=== PATIENT | male | born 1945 | race Caucasian/White ===

== ENCOUNTER 2020-11-23 14:44 | Outpatient (REF) | payer OTHER, SELFPAY ==
--- NOTE | ~2020-11-23 | XR_ITS ---
EXAMINATION: XR HAND/WRIST, LEFT CLINICAL INFORMATION: Pain, trauma. COMPARISON: None TECHNIQUE: PA, oblique, lateral, and scaphoid views of the left hand/wrist are obtained. FINDINGS: There is joint space narrowing, marginal osteophytes, and prominent subchondral degenerative cysts at the distal radioulnar joint. There is irregularity and atrophy of the lunate suspicious for avascular necrosis. There is marked narrowing of the radiolunate joint. There is widening of the scapholunate interval suspicious for a scapholunate ligament tear. There are moderate osteoarthritic changes at the triscaphe and first CMC joints. There is mild osteoarthritis of the first through third MCP joints and a few of the IP joints of the fingers. There is no acute fracture or malalignment. XR/XR hand wrist LT IMPRESSION: 1. Fqvfpxkn-yx-ffngfy osteoarthritis of the distal radioulnar joint. 2. Atrophy and irregularity of the lunate suspicious for avascular necrosis. Marked narrowing of the radiolunate joint. Scapholunate dissociation. 3. 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 Mild osteoarthritis of multiple MCP and IP joints. 4. No evidence of acute injury.
== END 2020-11-23 14:45 | disposition home or self-care (01) ==
LOC: HO.XRAY 14:44
PROVIDERS: PCP Internal Medicine; Visit Provider Internal Medicine
DX: M79.642 Pain in left hand (principal); V89.2XXD Person injured in unspecified motor-vehicle accident, traffic, subsequent encounter
CPT/HCPCS: 73110; 73130

== ENCOUNTER 2021-12-27 11:59 | Outpatient (REF) | payer MEDICARE, SELFPAY ==
[2021-12-27 13:33] LABS: Hematocrit 48.1 % (42.0-52.0); Hemoglobin 15.9 g/dl (14.0-18.0); Mean Corpuscular HGB Conc 33.1 g/dl (31.0-36.0); Mean Corpuscular Hemoglobin 31.7 pg (27.0-33.0); Mean Corpuscular Volume 95.8 fL (80.0-98.0); Mean Platelet Volume 10.7 fL (9.4-12.4); Platelet Count 195 X10*3/uL (160-400); Red Blood Count 5.02 X10*6/uL (4.60-5.80); Red Cell Distribution Width 13.3 % (11.0-16.0); White Blood Count 5.7 X10*3/uL (4.8-10.8)
[2021-12-27 13:38] LABS: INTERNATIONAL NORM RATIO 1.1 (0.9-1.1); Prothrombin Time 12.5 SEC (10.0-13.1)
[2021-12-27 13:55] LABS: Alanine Aminotransferase 84 U/L (0-40); Albumin Level 4.6 g/dL (3.5-5.0); Alkaline Phosphatase 56 U/L (39-117); Anion Gap 15 (12-20); Aspartate Amino Transferase 72 U/L (5-37); Bilirubin Total 0.5 mg/dL (0.0-1.0); Blood Urea Nitrogen 16 mg/dL (9-16); Calcium 9.7 mg/dL (8.4-10.2); Carbon Dioxide 27 mmol/L (22-29); Chloride 105 mmol/L (96-108); Cholesterol 133 mg/dL; Estimated Glomerular Filt Rate > 60; Glucose Random 99 mg/dL (60-115); HDL Cholesterol 26 mg/dL; LDL Cholesterol Calculated 30 mg/dl; Potassium 5.4 mmol/L (3.3-5.1); Sodium 142 mmol/L (135-145); Total Protein 7.4 g/dL (6.5-8.0); Triglycerides 388 mg/dL
[2021-12-27 14:03] LABS: Estimated Average Glucose 120 mg/dL; Hemoglobin A1c % 5.8 %
[2021-12-28 08:00] LABS: HBc Num1 8.01 S/CO (0.00-0.79); HBsAGNum1 0.24 S/CO (0.00-0.99); Hepatitis B Surface Antigen Negative (Negative); ~HepC Num1 0.05 S/CO (0.00-0.79); ~Hepatitis B Surface Antibody REACTIVE (Nonreactive); ~Hepatitis C Antibody Nonreactive (Nonreactive)
[2021-12-28 10:14] LABS: HBc Num2 8.02 S/CO; HBc Num3 7.88 S/CO; Hepatitis B Core Antibody Reactive (Nonreactive)
[2021-12-29 08:21] LABS: Hepatitis A Antibody IgG REACTIVE (Nonreactive); ~Hepatitis A Antibody IgG 13.32 S/CO (0.00-0.99)
== END 2021-12-27 12:00 | disposition home or self-care (01) ==
LOC: HO.LAB 11:59
PROVIDERS: PCP Internal Medicine; Visit Provider Internal Medicine
DX: K74.60 Unspecified cirrhosis of liver (principal)
CPT/HCPCS: 36415; 80053; 80061; 83036; 85027; 85610; 86704; 86706; 86708; 86803; 87340

== ENCOUNTER 2021-12-29 08:41 | Outpatient (REF) | payer MEDICARE, SELFPAY ==
--- NOTE | ~2021-12-29 | US_ITS ---
EXAMINATION: US ABDOMEN COMPLETE CLINICAL INFORMATION: Portal hypertension. COMPARISON: CT abdomen and pelvis 05/04/2018. X-ray abdomen 11/06/2017. Ultrasound abdomen complete 10/26/2012. TECHNIQUE: Real-time imaging of the abdominal viscera. FINDINGS: PANCREAS: The head and body the pancreas are normal. The tail is not well visualized due to bowel gas. ABDOMINAL AORTA: There is evidence of atherosclerotic disease. There is mild dilatation of the distal abdominal aorta measuring 3.2 x 3.2 cm. This is similar to previous The upper and mid abdominal aorta are normal in caliber. INFERIOR VENA CAVA: Not well visualized. LIVER: The liver is normal in size. The liver contour is normal. Liver echotexture is increased. No focal hepatic lesion. There is no intrahepatic biliary duct dilatation seen. GALLBLADDER: Normal. The gallbladder is physiologically distended without evidence of stones, sludge, polyps, wall thickening or pericholecystic fluid. COMMON BILE DUCT: Normal in caliber measuring 0.22 cm in diameter. RIGHT KIDNEY: There are are 2 cysts measuring 1.2 x 0.8 x 1.3 cm and 1 x 0.7 x 0.9 cm exophytic to the upper to midpole. No hydronephrosis or renal calculi. The kidney measures 10.7 cm in maximum dimension. LEFT KIDNEY: Normal. No hydronephrosis. No renal calculi or focal parenchymal lesions. The kidney measures 11.0 cm in maximum dimension. SPLEEN: Upper normal in size. The spleen measures 13.5 cm in maximum dimension. FREE FLUID: None. US/US abdomen complete IMPRESSION: Echogenic liver probably representing fatty infiltration. Upper normal-size spleen. No ascites. Atherosclerotic disease and mild dilatation of the distal abdominal aorta measuring 3.2 cm. Follow-up abdominal aortic ultrasound every 3 years recommended.. Small right renal cysts. Limited visualization of the tail the pancreas.
== END 2021-12-29 08:42 | disposition home or self-care (01) ==
LOC: HO.US 08:41
PROVIDERS: PCP Internal Medicine; Visit Provider Internal Medicine
DX: K76.6 Portal hypertension (principal)
CPT/HCPCS: 76700

== ENCOUNTER 2022-02-09 10:03 | Outpatient (REF) | payer MEDICARE, SELFPAY ==
--- NOTE | ~2022-02-09 | US_ITS ---
EXAMINATION: US COMPLETE ABDOMEN WITH LIVER ELASTOGRAPHY CLINICAL INFORMATION: Hepatic cirrhosis. COMPARISON: 12/29/[address] scan of 08/03/2016. TECHNIQUE: Real-time imaging of the abdominal viscera. Noninvasive ultrasound liver fibrosis assessment is performed using Latesha ElastPQ point quantification shear wave elastography (2D-SWE) with a C5-2 MHz transducer. Multiple elastography samples are obtained. FINDINGS: PANCREAS: Normal. The visualized pancreatic head and body are normal in appearance. The remainder of the pancreas is obscured from visualization by the overlying bowel gas. ABDOMINAL AORTA: The proximal, middle, and distal aortic segments are normal in caliber. INFERIOR VENA CAVA: Visualized portions are normal. LIVER: There is diffusely increased echogenicity consistent with fatty infiltration or hepatocellular disease of other etiology. No intrahepatic bile duct dilatation is seen. No suspicious solid mass is noted. The right lobe measures 17.8 cm in length. The left lobe measures 14.5 cm in length. Portal flow is hepatopedal. Shear wave liver elastography median stiffness is 1.86 m/s (reference: normal median stiffness is 1.3 m/s or less). IQR/median stiffness to assess sampling precision is 0.04 (reference: good quality data set is IQR/median stiffness of 0.15 or less). GALLBLADDER: Normal. The gallbladder is physiologically distended without evidence of stones, sludge, polyps, wall thickening or pericholecystic fluid. COMMON BILE DUCT: Normal in caliber measuring 0.4 cm in diameter. RIGHT KIDNEY: There is again noted to be a stable complex cyst with septation and no vascular flow within the septation. This is a Bosniak 2 cyst and does not require follow-up. No hydronephrosis. No renal calculi or focal solid parenchymal lesions. The kidney measures 10.0 cm in maximum dimension. LEFT KIDNEY: Normal. No hydronephrosis. No renal calculi or focal parenchymal lesions. The kidney measures 10.9 cm in maximum dimension. SPLEEN: Mildly enlarged. The spleen measures 13.2 cm in maximum dimension. FREE FLUID: None. US/US abdomen comp w elastography IMPRESSION: 1. Diffusely increased echogenicity of the liver consistent with fatty infiltration or hepatocellular disease of other etiology. Mildly enlarged spleen. 2. Liver elastography: Measurements are suggestive of compensated advanced chronic liver disease but need further test for confirmation. REFERENCE: Society of Radiologists in Ultrasound Liver Stiffness Thresholds (2020): LIVER STIFFNESS THRESHOLDS: *Liver Stiffness equal or less than 1.3 m/s: High probability of being normal. *Liver Stiffness less than 1.7 m/s: In the absence of other known clinical signs, rules out compensated advanced chronic liver disease. *Liver Stiffness 1.7-2.1 m/s: Suggestive of compensated advanced chronic liver disease but need further test for confirmation. *Liver Stiffness over 2.1 m/s: Rules in compensated advanced chronic liver disease. *Liver Stiffness over 2.4 m/s: Suggestive of clinically significant portal hypertension. QUALITY OF DATA SET: *IQR/Median value equal or less than 0.15 implies a quality data set. *IQR/Median value over 0.15 implies a poor quality data set. SIGNIFICANT CHANGE FROM PRIOR EXAM: Significant change if liver stiffness measurement is 10% or greater from prior exam. OTHER CONSIDERATIONS: The stage of liver fibrosis may be overestimated in the setting of acute hepatitis, liver inflammation, elevated liver function tests, hepatic vascular congestion, obstructive cholestasis, non-fasting state, and infiltrative diseases such as amyloidosis and lymphoma. In some patients with NAFLD, the liver stiffness thresholds for compensated advanced chronic liver disease may be lower. In causes other than viral hepatitis and NAFLD, liver stiffness thresholds are not well established.
== END 2022-02-09 10:04 | disposition home or self-care (01) ==
LOC: HO.US 10:03
PROVIDERS: Visit Provider Internal Medicine
DX: K74.60 Unspecified cirrhosis of liver (principal)
CPT/HCPCS: 76705; 76981

== ENCOUNTER → 2022-02-15 10:57 | Outpatient (BNVA) | payer MEDICARE, SELFPAY | PROVIDERS: PCP Internal Medicine; Visit Provider Internal Medicine | DX: K74.60 Unspecified cirrhosis of liver (principal); R76.8 Other specified abnormal immunological findings in serum; Z86.010 Personal history of colon polyps; Z80.0 Family history of malignant neoplasm of digestive organs | CPT/HCPCS: 99212 ==

== ENCOUNTER 2022-06-02 11:52 | Outpatient (REF) | payer MEDICARE, SELFPAY ==
--- NOTE | ~2022-06-02 | XR_ITS ---
EXAMINATION: XR CHEST CLINICAL INFORMATION: Acute cough with emphysema COMPARISON: 09/08/2014 TECHNIQUE: 2 views of the chest were obtained. FINDINGS: Heart size normal. There is no evidence of CHF. Changes of emphysema are not is well appreciated on the plain film radiograph as they were on the prior CT scan of the chest. No consolidations or effusions are seen. Some mild peribronchial thickening is seen. XR/XR chest 2V IMPRESSION: No acute intrathoracic disease. Mild peribronchial thickening.
== END 2022-06-02 11:53 | disposition home or self-care (01) ==
LOC: HO.XRAY 11:52
PROVIDERS: PCP Internal Medicine; Visit Provider Family Medicine
DX: R05.1 Acute cough (principal); J43.2 Centrilobular emphysema
CPT/HCPCS: 71046

== ENCOUNTER 2022-06-16 13:52 | Outpatient (REF) | payer MEDICARE, SELFPAY ==
--- NOTE | ~2022-06-16 | XR_ITS ---
EXAMINATION: XR CHEST CLINICAL INFORMATION: Dyspnea, SOB. COMPARISON: None available. TECHNIQUE: 2 views of the chest were obtained. FINDINGS: No significant abnormality is noted involving the heart, lungs, mediastinum, bony thorax or soft tissues. XR/XR chest 2V IMPRESSION: Unremarkable chest examination.
== END 2022-06-16 13:53 | disposition home or self-care (01) ==
LOC: HO.XRAY 13:52
PROVIDERS: Visit Provider Family Medicine
DX: R06.00 Dyspnea, unspecified (principal)
CPT/HCPCS: 71046

== ENCOUNTER 2022-07-06 08:05 | Outpatient (REF) | payer MEDICARE, SELFPAY ==
--- NOTE | ~2022-07-06 | US_ITS ---
EXAMINATION: US ABDOMEN COMPLETE CLINICAL INFORMATION: Unspecified cirrhosis of liver. COMPARISON: Ultrasound abdomen complete 02/09/2022 and 12/29/2021. CT abdomen and pelvis 05/04/2018. X-ray abdomen 11/06/2017. TECHNIQUE: Real-time imaging of the abdominal viscera. FINDINGS: PANCREAS: Normal. ABDOMINAL AORTA: The upper mid abdominal aorta is normal in caliber. There is a small aneurysm of the lower abdominal aorta measuring 3.5 x 3.2 cm in AP and transverse dimension. This measured 3.3 cm on prior exam January 2022. INFERIOR VENA CAVA: Visualized portions are normal. LIVER: Liver echotexture is increased. The liver is slightly enlarged. The liver contour is normal. No focal hepatic lesion. There is no intrahepatic biliary duct dilatation seen. GALLBLADDER: Normal. The gallbladder is physiologically distended without evidence of stones, sludge, polyps, wall thickening or pericholecystic fluid. COMMON BILE DUCT: Normal in caliber measuring 0.2 cm in diameter. RIGHT KIDNEY: There is a bilobed cyst with slightly thickened septation or 2 adjacent cysts exophytic to the upper pole measuring 1.5 x 0.9 x 1.4 cm. This measured 1.3 x 1.1 x 1.3 cm on previous exam and may be minimally increased in size. No hydronephrosis or renal calculi. The kidney measures 10.6 cm in maximum dimension. LEFT KIDNEY: Normal. No hydronephrosis. No renal calculi or focal parenchymal lesions. The kidney measures 11.0 cm in maximum dimension. SPLEEN: Upper normal in size. The spleen measures 12.9 cm in maximum dimension. Stable 1.7 x 1.3 x 1.4 cm splenule. FREE FLUID: None. US/US abdomen complete IMPRESSION: Slightly enlarged echogenic liver. No focal liver lesion. Upper normal-size spleen. Small lower abdominal aortic aneurysm. Annual ultrasound follow-up for 5 years according best practice recommendations recommended. Slight interval increase in size in the complex cyst exophytic to the upper pole of the right kidney. This could be followed at the same time as abdominal aortic aneurysm follow-up.
== END 2022-07-06 08:06 | disposition home or self-care (01) ==
LOC: HO.US 08:05
PROVIDERS: PCP Internal Medicine; Visit Provider Internal Medicine
DX: K74.60 Unspecified cirrhosis of liver (principal)
CPT/HCPCS: 76700

== ENCOUNTER 2024-02-01 12:01 | Outpatient (REF) | payer MEDICARE, SELFPAY ==
[2024-02-01 13:04] LABS: Estimated Average Glucose 212 mg/dL; Hemoglobin A1C 216.3206 umol/L; Total Hemoglobin (HGBA1C) 2902.7197 umol/L
[2024-02-01 13:27] LABS: Anion Gap 15 (12-20); Blood Urea Nitrogen 11 mg/dL (9-16); Calcium 9.8 mg/dL (8.4-10.2); Carbon Dioxide 22 mmol/L (22-29); Chloride 103 mmol/L (96-108); Estimated Glomerular Filt Rate > 60; Glucose Random 284 mg/dL (60-115); Potassium 4.6 mmol/L (3.3-5.1); Sodium 135 mmol/L (135-145)
== END 2024-02-01 12:02 | disposition home or self-care (01) ==
LOC: HO.LAB 12:01
PROVIDERS: PCP Internal Medicine; Visit Provider Internal Medicine
DX: R73.09 Other abnormal glucose (principal)
CPT/HCPCS: 36415; 80048; 83036

== ENCOUNTER → 2024-04-23 10:33 | Outpatient (BNV) | payer MEDICARE, SELFPAY | PROVIDERS: Admitting Provider Student in an Organized Health Care Education/Training Program; Emergency Provider Emergency Medicine Emergency Medical Services; PCP Internal Medicine; Visit Provider Internal Medicine | DX: R42 Dizziness and giddiness (principal) | CPT/HCPCS: 93010 ==

== ENCOUNTER → 2024-04-23 16:45 | Outpatient (BNV) | payer MEDICARE, SELFPAY | PROVIDERS: Admitting Provider Student in an Organized Health Care Education/Training Program; Emergency Provider Emergency Medicine Emergency Medical Services; PCP Internal Medicine; Visit Provider Student in an Organized Health Care Education/Training Program | DX: D64.9 Anemia, unspecified (principal) | CPT/HCPCS: 99232 ==

== ENCOUNTER → 2024-04-23 16:45 | Outpatient (BNV) | payer MEDICARE, SELFPAY | PROVIDERS: Admitting Provider Student in an Organized Health Care Education/Training Program; Emergency Provider Emergency Medicine Emergency Medical Services; PCP Internal Medicine; Visit Provider Internal Medicine Gastroenterology | DX: D64.9 Anemia, unspecified (principal) | CPT/HCPCS: 99223 ==

== ENCOUNTER 2024-05-20 10:06 | Outpatient (REF) | payer MEDICARE, MEDICAID, SELFPAY ==
[2024-05-20 10:38] LABS: MANUAL DIFF FLAG NO
[2024-05-20 10:59] LABS: Basophils Absolute Auto 0.1 X10*3/uL (0.0-0.2); Eosinophils Absolute Auto 0.1 X10*3/uL (0.0-0.4); Eosinophils Percent Auto 1.9 % (0-4); Hematocrit 28.1 % (42.0-52.0); Hemoglobin 7.5 g/dl (14.0-18.0); Imm Gran Abs Auto 0.04 X10*3/uL (0.00-0.03); Imm Gran Pct Auto 0.6 % (0.0-0.4); Lymphocytes Absolute Auto 0.9 X10*3/uL (1.2-4.9); Lymphocytes Percent Auto 13.3 % (20-40); Mean Corpuscular HGB Conc 26.7 g/dl (31.0-36.0); Mean Corpuscular Hemoglobin 17.6 pg (27.0-33.0); Mean Corpuscular Volume 65.8 fL (80.0-98.0); Mean Platelet Volume 9.3 fL (9.4-12.4); Monocytes Absolute Auto 0.9 X10*3/uL (0.1-1.2); Monocytes Percent Auto 13.4 % (2-11); Neutrophils Absolute Auto 4.7 x10*3/uL (2.0-8.3); Neutrophils Percent Auto 69.8 % (45-73); Platelet Count 233 X10*3/uL (160-400); Red Blood Count 4.27 X10*6/uL (4.60-5.80); Red Cell Distribution Width 21.2 % (11.0-16.0); White Blood Count 6.7 X10*3/uL (4.8-10.8)
--- OUTSIDE RECORDS SUMMARY | 2024-05-20 11:19 | XMS_ITS | Clinical Summary ---
Author Organization [facility] Address [address] [place] [address] Care Team Providers Care Steam Drier Tender Name Role Phone Tank Mills MD Primary Care Provider [phone] Allergies No known active allergies Medications Medication Sig Dispensed Refills Start Date End Date Status aspirin EC 81 MG tablet TAKE ONE TABLET BY MOUTH EVERY DAY 0 01/24/2023 Active Cholecalciferol (Vitamin D3) 25 MCG (1000 UT) CAPS Indications: takes 2 tablets once daily 0 Active Coenzyme Q10 100 MG capsule Take 100 mg by mouth. 0 Active famotidine (PEPCID) 40 MG tablet Take 1 tablet (40 mg total) by mouth. 0 10/31/2019 Active metoprolol tartrate (LOPRESSOR) 25 MG tablet Take 1 tablet (25 mg total) by mouth. 0 10/31/2019 Active pregabalin (LYRICA) 200 MG capsule Take 1 capsule (200 mg total) by mouth. 0 03/21/2023 Active rosuvastatin (CRESTOR) tablet 5 mg Take 1 tablet (5 mg total) by mouth. 0 10/31/2019 Active Vitamin E (Vitamin E/D-Alpha Natural) 268 MG (400 UNIT) CAPS Take 400 Units by mouth. 0 Active Active Problems No known active problems Social History Tobacco Use Types Packs/Day Years Used Date Smoking Tobacco: Former Cigarettes Smokeless Tobacco: Never Tobacco Cessation:Counseling Given: Not Answered Alcohol Use Standard Drinks/Week Comments Not Currently 0 (1 standard drink = 0.6 oz pur e alcohol) Sex and Gender Information Value Date Recorded Sex Assigned at Male 04/13/2023 4:38 PM EST Gender Identity Not on file Sexual Orientation Not on file Job Start Date Occupation Industry Not on file Not on file Not on file Last Filed Vital Signs Vital Sign Reading Time Taken Comments Blood Pressure 168/93 04/24/2023 2:52 PM EST Pulse 109 04/24/2023 2:52 PM EST Temperature 36.8 ??C (98.2 ??F) 04/24/2023 2:52 PM ES T Respiratory Rate - - Oxygen Saturation 96% 04/24/2023 2:52 PM EST Inhaled Oxygen Concentration - - Weight 91.6 kg (202 lb) 04/24/2023 2:52 PM EST Height 181.6 cm (5' 11.5 ) 04/24/2023 2:52 PM ES T Body Mass Index 27.78 04/24/2023 2:52 PM EST Plan of Treatment Health Maintenance Due Date Last Done Comments Hepatitis C Screening 1945 Depression Screening 1958 Preventative Health Evaluation 1964 DTap / Tdap / Td (1 - Tdap) 1965 Shingrix-Zoster Vaccine (1 of 2) 1996 Fall Risk Assessment 2011 Pneumococcal Vaccine (2 of 2 - PPSV23 or PCV20) 02/15/2017 02/16/2016 RSV Adult > 60+ Yrs or (1 - 1-dose 75+ series) 2021 COVID-19 Vaccine (3 - season) 2023 05/19/2020, 04/25/2020 Influenza Vaccine (#1) 2023 0, 01/08/2019, 01/22/2018, Additional history exists Hepatitis B Vaccines Aged Out No long er eligible based on patient's age to complete this topic RSV Ped < 20 months Aged Out No longe r eligible based on patient's age to complete this topic Care Teams Steam Drier Tender Relationship Specialty Start Date End Date Tank Mills MD [address] [place] [address] PCP - General Internal Medicine 04/13/23
--- OUTSIDE RECORDS SUMMARY | 2024-05-20 11:19 | XMS_ITS | Clinical Summary ---
Author Organization [facility] Address [address] [place] [address] Care Team Providers Care Military Nurse Name Role Phone Tank Mills MD Primary Care Provider [phone] Immunizations Name Administration Dates Next Due Pfizer SARS-CoV-2 COVID-19, mRNA, LNP-S, preservative free 05/19/2020,04/25/2020 Social History Tobacco Use Types Packs/Day Years Used Date Smoking Tobacco: Former Smokeless Tobacco: Never Alcohol Use Standard Drinks/Week Comments Not Currently 0 (1 standard drink = 0.6 oz pur e alcohol) Sex and Gender Information Value Date Recorded Sex Assigned at Not on file Legal Sex Male 4:44 AM EST Gender Identity Not on file Sexual Orientation Not on file Obstetrics History Last Filed Vital Signs Vital Sign Reading Time Taken Comments Blood Pressure 168/93 04/24/2023 2:52 PM EST Sitting Left arm Pulse 109 04/24/2023 2:52 PM EST Temperature - - Respiratory Rate - - Oxygen Saturation - - Inhaled Oxygen Concentration - - Weight 91.6 kg (202 lb) 04/24/2023 2:52 PM EST Height 181.6 cm (5' 11.5 ) 04/24/2023 2 :52 PM EST Body Mass Index 27.78 04/24/2023 2:52 PM EST Plan of Treatment Health Maintenance Due Date Last Done Comments DTaP,Tdap,and Td Vaccines (1 - Tdap) 1965 Pneumococcal Vaccine: 50+ Years (1 of 1 - PCV) 1996 Zoster Vaccines (1 of 2) 1996 RSV Immunization Patients 60 + Years Old (1 - 1-dose 75+ series) 2021 Cholesterol Screening (Lipid Panel) 02/27/2022 Depression Screening 02/27/2022 Falls Risk Assessment 02/27/2022 Hepatitis C Screening 02/27/2022 Social Influencers of Health Screening 02/27/2022 COVID-19 Vaccine (3 2023-2 5 season) 2023 05/19/2020, 04/25/2020 Influenza Vaccine (#1) 2023 HIB Vaccines Aged Out No longer eligi ble based on patient's age to complete this topic HPV Vaccines Aged Out No longer eligi ble based on patient's age to complete this topic Hepatitis A Vaccines Aged Out No long er eligible based on patient's age to complete this topic Hepatitis B Vaccines Aged Out No long er eligible based on patient's age to complete this topic IPV Vaccines Aged Out No longer eligi ble based on patient's age to complete this topic MMR Vaccines Aged Out No longer eligi ble based on patient's age to complete this topic Meningococcal ACWY Vaccine Aged Out N o longer eligible based on patient's age to complete this topic Meningococcal B Vacine Aged Out No lo nger eligible based on patient's age to complete this topic RSV Immunization Patients Under 20 months Aged Out No longer eligible b ased on patient's age to complete this topic Varicella Vaccines Aged Out No longer eligible based on patient's age to complete this topic Care Teams Military Nurse Relationship Specialty Start Date End Date Tank Mills MD [address] [place] [address], [address] [place] [id number] PCP - General Internal Medicine 04/09/21
[2024-05-20 11:57] LABS: Ferritin 11 ng/mL (20-250)
[2024-05-20 12:22] LABS: Iron 163 mcg/dL (45-160); Percent Iron Saturation 37 % (15-50); Total Iron Binding Capacity 440 mcg/dL (228-428); Unsaturated Iron Binding 277 ug/dL
== END 2024-05-20 10:07 | disposition home or self-care (01) ==
LOC: HO.LAB 10:06
PROVIDERS: PCP Internal Medicine; Visit Provider Internal Medicine
DX: D50.0 Iron deficiency anemia secondary to blood loss (chronic) (principal)
CPT/HCPCS: 36415; 82728; 83540; 85025

== ENCOUNTER 2024-07-16 09:35 | Outpatient (REF) | payer MEDICARE, MEDICAID, SELFPAY ==
--- NOTE | ~2024-07-16 | XR_ITS ---
CLINICAL HISTORY: Z86.010 - Personal history of colon polyps --- Additional Notes or Special Instruct ions: check for incontinence Single view of the abdomen. COMPARISON: None FINDINGS: Normal bowel distention. Pelvic phleboliths present. No pneumoperitoneum identified. Moderate colonic stool burden. Moderate spondylosis. No acute fracture. IMPRESSION: 1. Nonspecific nonobstructive bowel gas pattern. 2. Moderate colonic stool burden. This document has been electronically signed by: Gorge Villa MD on 07/17/2024 13:02:27
--- OUTSIDE RECORDS SUMMARY | 2024-07-16 14:25 | XMS_ITS | Clinical Summary ---
Author Organization [facility] Address [address] [place] [address] Care Team Providers Care Intake Coordinator Name Role Phone Tank Mills MD Primary Care Provider [phone]- [phone] Allergies No known active allergies Medications Medication [...] age to complete this topic Care Teams Intake Coordinator Relationship Specialty Start Date End Date Tank Mills MD [address] [place] [address] PCP - General Internal Medicine 04/13/23
--- OUTSIDE RECORDS SUMMARY | 2024-07-16 14:25 | XMS_ITS | Clinical Summary ---
Author Organization [facility] Address [address] [place] [address] Care Team Providers Care Geriatric Aide Name Role Phone Tank Mills MD Primary Care Provider [phone] Immunizations Name Administration Dates Next Due Pfizer [...] age to complete this topic Care Teams Geriatric Aide Relationship Specialty Start Date End Date Tank Mills MD [address] [place] [address], [address] [place] [address] PCP - General Internal Medicine 04/09/21
== END 2024-07-16 09:36 | disposition home or self-care (01) ==
LOC: HO.XRAY 09:35
PROVIDERS: PCP Internal Medicine; Visit Provider Internal Medicine Gastroenterology
DX: K74.60 Unspecified cirrhosis of liver (principal); Z86.0100 Personal history of colon polyps, unspecified
CPT/HCPCS: 74018

== ENCOUNTER 2024-07-16 09:35 | Outpatient (AMB) | payer MEDICARE, MEDICAID, SELFPAY ==
--- NOTE | 2024-07-16 09:36 | A.OFFVIS_ITS ---
Intake Visit Reasons: Passing stools Intake Note: Cory presents as a telehealth today. CC: States that he is oozing stool and diarrhea in his underwear. He has pasty bowel movements and has to wipe 10 times. Pains on the LLQ. He wants to have a pill cam done to see what is going down. He states that he has not had that done yet. Network Operations Center Engineer Required: No Allergies No Known Allergies Allergy (Verified 07/16/24 09:36) HPI HPI Passing stools: Details: 79-year-old male with hx of?CAD s/p MD in 2018 on aspirin and Plavix, HTN, AAA, peripheral neuropathy, COPD, gon-yajgdxc-qrrpogmyj type 2 diabetes, fatty liver, and GERD who I am calling for f/u RECAP: Patient had noted he was more SOB on exertion, with fatigue, and light headedness over last few weeks. Overnight he had a fall whilst on the toilet and came to the ED. work up revealed microcytic anemia with HGB 7.5 g/l having been 15.9/48.1 on 12/27/2021. he does take aspirin and plavix for cardiac health. He denies abdominal pain, chest pain, melena, hemoptysis, hematemesis, hematochezia. he had bowel motion today and was brown appearing. He may have had a colonoscopy in the distant past, can't recall details. Per chart review he had colo with Dr watson 2016 with few polyps removed and recommended to have q 5 yrs due to fh of crc He received 1 unit of PRBC. 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 Colonoscopy Findings: colon polyps internal hemorrhoids Anemia likely due to erosive gastritis from aspirin and nsaid use PCP had checked labs at [facility] recently and much better per pt report INTERIM: He has issues with paste like stools stool can be in underwear been going on for a while no blood in the stool he has noted LLQ pain, occurs intermittent, spasm like denies nausea or vomiting he has been compliant with omerpazole he has been taking metamucil he has no issues with urine A/P: 1/ Anemia 2/ possible overflow incontinence 3/ compensated, early cirrhosis -no varices PLAN: 1/ capsule endo to complete anemia w/u 2/ KUB< if severe -mod constipation then improve laxative regimen, if minimal stool then refer Dr Bledsoe, for possible neurostim 3/ repeat US liver now for HCC screening 4/ get labs from [facility] f/u 4-8 weeks PFSH Medical History Lower extremity edema Low back pain Restless legs syndrome (RLS) Pulmonary nodules GERD (gastroesophageal reflux disease) Non-alcoholic fatty liver disease Benign positional vertigo BPH (benign prostatic hyperplasia) CAD (coronary artery disease) Myocardial infarction Aortic aneurysm Cirrhosis Personal history of colonic polyps Surgical History History of heart artery stent Hx of prostate biopsy History of esophagogastroduodenoscopy (EGD) Hx of colonoscopy Family History Father Lung cancer Sister Lung cancer Social History Household Members: None Housing: House Do you presently have visiting nurse or other home services: Yes Alcohol intake: never Comment: Refused larms, call [place] within reach Patient Tobacco Use Status: Former Tobacco user Years Smoked: 20years service: No Telehealth Telehealth Telehealth Platform: Telephone Location of provider rendering services: practice address Location of patient: address on file Patient Identification confirmed using: Name, : Yes Telehealth method: voice only Patient verbally consented to treatment: Yes Patient verbally consented to billing insurance company: Yes Patient informed of any privacy concerns related to visit: Yes Minutes spent on Phone/Video with Pt.: 10 Assessment & Plan Assessment & Plan (1) Personal history of colonic polyps: Code(s): Z86.010 - Personal history of colon polyps Category: Medical Plan: as above (2) Cirrhosis: Code(s): K74.60 - Unspecified cirrhosis of liver Category: Medical Plan: as above Orders: Orders XR KUB Today Z86.010 - Personal history of colon polyps US abdomen comp w elastography Today K74.60 - Unspecified cirrhosis of liver Medications: New dicyclomine 10 mg PO BID 30 caps 1RF Coding Level of Care Code Tele Est Pt Level 4 (78773) Diagnoses Personal history of colonic polyps Z86.010 Cirrhosis K74.60
--- OUTSIDE RECORDS SUMMARY | 2024-07-16 10:35 | XMS_ITS | Clinical Summary ---
Author Organization [facility] Address [address] [place] [address] Care Team Providers Care Rhia Name Role Phone Tank Mills MD Primary Care Provider [phone] Immunizations Name Administration Dates Next Due Pfizer [...] cm (5' 11.5 ) 04/24/2023 2:52 PM EST Body Mass Index 27.78 04/24/2023 2:52 PM EST Plan of Treatment Health Maintenance Due Date Last Done Comments Diabetes: Annual Foot Exam 1955 Diabetes: Annual Retina Eye Exam 1955 DTaP,Tdap,and Td Vaccines (1 - Tdap) 1965 Hepatitis A Vaccines (1 of 2 - Risk 2-dose series) 1965 Hepatitis B Vaccines (1 of 3 - Risk 3-dose series) 2006 Pneumococcal Vaccine: 50+ Years (2 of 2 - PPSV23) 04/12/2016 02/16/2016 Zoster Vaccines (1 of 2) 09/01/2016 07/07/2016 COVID-19 Vaccine (3 - Pfizer risk series) 06/16/2020 05/19/2020, 04/25/2020 Depression Screening 02/27/2022 Falls Risk Assessment 02/27/2022 Social Influencers of Health Screening 02/27/2022 Diabetes: Blood Sugar Control Test (HGBA1C) 06/13/2024 Diabetes: Annual Urine Albumin-Creatinine Ratio (uACR) 04/22/2025 04/22/2024 Diabetes: Annual GFR (Glomerular Filtration Rate) 04/22/2025 04/22/2024, 08/15/2023, 07/27/2017 Hypertension/CHF/CAD Annual BMP Blood Test 04/22/2025 04/22/2024, 08/15/2023, 07/27/2017 Cholesterol Screening (Lipid Panel) 04/22/2029 04/22/2024 Hepatitis C Screening Completed 08/20/2020 RSV Immunization Adult Patients Completed 02/24/2023 Influenza Vaccine Completed 12/10/2023, , 12/21/2021, Additional history exists HIB Vaccines Aged Out No longer eligi [...] age to complete this topic Meningococcal B Vaccine Aged Out No l onger eligible based on patient's age to complete this topic RSV Immunization Patients Under 20 months Aged Out No longer eligible based on patient's age to complete this topic Varicella Vaccines Aged Out No longer eligible based on patient's age to complete this topic Care Teams Rhia Relationship Specialty Start Date End Date Tank Mills MD [address] [place] [address], [address] [place] [address] PCP - General Internal Medicine 04/09/21
--- OUTSIDE RECORDS SUMMARY | 2024-07-16 10:35 | XMS_ITS | Clinical Summary ---
Author Organization [facility] Address [address] [place] [address] Care Team Providers Care Hand Suture Winder Name Role Phone Tank Mills MD Primary Care Provider [phone] Allergies No known active allergies Medications Medication [...] age to complete this topic Care Teams Hand Suture Winder Relationship Specialty Start Date End Date Tank Mills MD [address] [place] [address] PCP - General Internal Medicine 04/13/23
== END 2024-07-16 12:14 | disposition home or self-care (01) ==
LOC: HO.HGI 09:35
PROVIDERS: PCP Internal Medicine; Visit Provider Internal Medicine Gastroenterology
DX: Z86.0100 Personal history of colon polyps, unspecified (principal); K74.60 Unspecified cirrhosis of liver
CPT/HCPCS: 98012

== ENCOUNTER → 2024-07-16 12:08 | Outpatient (BNV) | payer MEDICARE, MEDICAID, SELFPAY | PROVIDERS: PCP Internal Medicine; Visit Provider Radiology Diagnostic Radiology | DX: K56.41 Fecal impaction (principal); R14.0 Abdominal distension (gaseous) | CPT/HCPCS: 74018 ==

== ENCOUNTER 2024-09-05 08:39 | Outpatient (REF) | payer MEDICARE, MEDICAID, SELFPAY ==
--- NOTE | ~2024-09-05 | US_ITS ---
EXAMINATION: US ABDOMEN COMPLETE WITH LIVER ELASTOGRAPHY HISTORY: K74.60 - Unspecified cirrhosis of liver TECHNIQUE: Real-time grayscale ultrasound imaging of the abdomen was performed and images were reviewed. COMPARISON: Comparison is made with the prior examination dated 07/06/2022. FINDINGS: Liver: The right lobe of the liver measures 16.9 cm in size. The left lobe of the liver measures 14.7 cm in size. The liver demonstrates increased echotexture, consistent with steatosis. There is focal fatty sparing adjacent to the gallbladder. The liver demonstrates a mildly nodular contour, suggestive of cirrhosis. No focal mass or intrahepatic biliary ductal dilatation is identified. There is normal hepatopedal flow in the portal vein. Ultrasound elastography of the liver was performed with 10 separate measurements of the liver parenchyma with the patient in the supine position. Measurements were obtained approximately 2 cm below Surinder's capsule and perpendicular to the capsule. The median shear wave velocity is 1.91 m/s. The interquartile range/median (IQR/median) is 0.27. Gallbladder and biliary tree: The gallbladder is unremarkable, without evidence of calculi, wall thickening, or pericholecystic fluid. There is no sonographic Szymanski sign. The common bile duct is normal in caliber measuring 4 mm. Kidneys: The right kidney measures 11.0 cm in length and demonstrates a 1.7 x 1.0 x 1.3 cm complex lesion at the upper pole which demonstrates internal echoes and may represent a solid lesion. Previously this appeared more cystic in nature. The left kidney measures 12.0 cm in length and is unremarkable. Pancreas: The pancreatic head, neck, and body are unremarkable. The pancreatic tail is obscured by bowel gas. Spleen: The spleen is enlarged, measuring 15.7 cm in length. There is a 2.0 cm splenule. Abdominal aorta and inferior vena cava: The visualized portions of the abdominal aorta and inferior vena cava are normal in caliber. There is no free fluid in the abdomen. US/US abdomen comp w elastography IMPRESSION: 1. Hepatosplenomegaly and hepatic steatosis. Nodular liver contour, suggestive of cirrhosis. 2. 1.7 x 1.0 x 1.3 cm complex lesion at the upper pole of the right kidney. A solid mass is not excluded, and renal protocol CT is recommended. The median shear wave velocity in the liver is 1.91 m/s, corresponding to a median liver stiffness of 11.0 kPa. The IQR/median value is 0.27. This is indicative of a quality data set. Findings are indicative of a high elastography value suggestive of compensated advanced chronic liver disease. REFERENCE: Society of Radiologists in Ultrasound Liver Stiffness Thresholds (2019): LIVER STIFFNESS THRESHOLDS: *Shear wave velocity less than 1.3 m/s (Liver Stiffness equal or less than 5 kPa): High probability of being normal. *Shear wave velocity less than 1.7 m/s (Liver Stiffness less than 9 kPa): In the absence of other known clinical signs, rules out compensated advanced chronic liver disease. *Shear wave velocity between 1.7-2.1 m/s (Liver Stiffness 9-13 kPa): Suggestive of compensated advanced chronic liver disease but need further test for confirmation. *Shear wave velocity between 2.1-2.4 m/s (Liver Stiffness 13-17 kPa): Rules in compensated advanced chronic liver disease. *Shear wave velocity greater than 2.4 m/s (Liver Stiffness over 17 kPa): Suggestive of clinically significant portal hypertension. QUALITY OF DATA SET: SIGNIFICANT CHANGE FROM PRIOR EXAM: Significant change if liver stiffness measurement is 10% or greater from prior exam. OTHER CONSIDERATIONS: The stage of liver fibrosis may be overestimated in the setting of acute hepatitis, liver inflammation, elevated liver function tests, hepatic vascular congestion, obstructive cholestasis, non-fasting state, and infiltrative diseases such as amyloidosis and lymphoma. In some patients with NAFLD, the liver stiffness thresholds for compensated advanced chronic liver disease may be lower. In causes other than viral hepatitis and NAFLD, liver stiffness thresholds are not well established. Electronically signed by: Ramón Yuusf MD 09/05/2024 09:38 AM EDT
--- OUTSIDE RECORDS SUMMARY | 2024-09-05 08:57 | XMS_ITS | Clinical Summary ---
Author Organization [facility] Address [address] [place] [address] Care Team Providers Care Supply Chain Buyer Name Role Phone Tank Mills MD Primary Care Provider +1- [phone] Allergies No known active allergies Medications Medication [...] - season) 2023 05/19/2020, 04/25/2020 Influenza Vaccine (Season Ended) 2024 12/07/2019, 01/08/2019, 01/22/2018, Additional history exists Hepatitis B Vaccines Aged Out No long er eligible based on patient's age to complete this topic RSV Ped < 20 months Aged Out No longe r eligible based on patient's age to complete this topic Care Teams Supply Chain Buyer Relationship Specialty Start Date End Date Tank Mills MD [address] [place] [address] PCP - General Internal Medicine 04/13/23
== END 2024-09-05 08:40 | disposition home or self-care (01) ==
LOC: HO.US 08:39
PROVIDERS: PCP Internal Medicine; Visit Provider Internal Medicine Gastroenterology
DX: K74.60 Unspecified cirrhosis of liver (principal)
CPT/HCPCS: 76700; 76981

== ENCOUNTER → 2024-09-05 08:41 | Outpatient (BNV) | payer MEDICARE, MEDICAID, SELFPAY | PROVIDERS: PCP Internal Medicine; Visit Provider Radiology Diagnostic Radiology | DX: K76.89 Other specified diseases of liver (principal); K76.0 Fatty (change of) liver, not elsewhere classified; R16.2 Hepatomegaly with splenomegaly, not elsewhere classified | CPT/HCPCS: 76700; 76981 ==

== ENCOUNTER 2024-09-09 12:05 | Outpatient (REF) | payer MEDICARE, MEDICAID, SELFPAY ==
[2024-09-09 12:51] LABS: Blood Urea Nitrogen 13 mg/dL (9-16); Estimated Glomerular Filt Rate > 60
--- OUTSIDE RECORDS SUMMARY | 2024-09-09 13:33 | XMS_ITS | Clinical Summary ---
Author Organization [facility] Address [address] [place] [address] Care Team Providers Care Home Help Aide Name Role Phone Tank Mills MD Primary Care Provider +1- [phone] Allergies No known active allergies Medications Medication [...] age to complete this topic Care Teams Home Help Aide Relationship Specialty Start Date End Date Tank Mills MD [address] [place] [address] PCP - General Internal Medicine 04/13/23
== END 2024-09-09 12:06 | disposition home or self-care (01) ==
LOC: HO.LAB 12:05
PROVIDERS: Absent Provider Internal Medicine Gastroenterology; PCP Internal Medicine; Visit Provider Thoracic Surgery (Cardiothoracic Vascular Surgery)
DX: N28.89 Other specified disorders of kidney and ureter (principal); R15.9 Full incontinence of feces; D64.9 Anemia, unspecified
CPT/HCPCS: 36415; 82565; 84520

== ENCOUNTER 2024-09-10 14:56 | Outpatient (REF) | payer MEDICARE, MEDICAID, SELFPAY ==
--- NOTE | ~2024-09-10 | CT_ITS ---
EXAMINATION: CT ABDOMEN AND PELVIS WITH CONTRAST CLINICAL INFORMATION: Right renal lesion seen on ultrasound, please evaluate. COMPARISON: None available. TECHNIQUE: Multidetector volumetric images were obtained from the superior aspect of the liver through the pubic symphysis following administration 85 mL of Omnipaque 350 intravenous contrast. Sagittal and coronal reformatted images were obtained on the technologist's workstation. Oral contrast: No This CT examination was performed using dose optimization techniques as appropriate, variously including the following: *Automated exposure control *Adjustment of mA and/or kV according to patient size (this includes techniques or standardized protocols for targeted exams where dose is matched to indication/reason for exam; i.e. extremities or head) *Use of iterative reconstruction technique FINDINGS: LUNG BASES: Lung bases demonstrate mild subpleural scarring in the bilateral lower lobes. Minimal bronchiectasis of the small airways. Minimal dependent atelectasis. Heart size is normal. There are coronary calcifications. No pericardial or pleural effusion. Probable small type I hiatus hernia. LIVER, GALLBLADDER, AND BILIARY TREE: Liver is normal in size and demonstrates mild diffuse fatty infiltration. There is no suspicious focal lesion. There is no intrahepatic or extrahepatic biliary dilatation. The gallbladder is unremarkable with no evidence of radiopaque gallstones, gallbladder wall thickening, or obvious pericholecystic inflammatory changes. PANCREAS: Unremarkable. SPLEEN: Mild Splenomegaly, with spleen measuring 16.9 cm in craniocaudal diameter. There is a small splenule in the inferior hilum. ADRENAL GLANDS: Unremarkable. KIDNEYS AND URETERS: RIGHT KIDNEY: Within the upper pole of the right kidney, there is a mildly exophytic mildly complex cyst with a central calcification measuring 2.3 x 0.7 x 1.7 cm. There is is a benign appearing Bosniak 2 lesion. No additional suspicious abnormalities of the right kidney. No hydronephrosis, mass, or calculus. LEFT KIDNEY: Left kidney is normal in appearance. No hydronephrosis, mass, or calculus. The proximal ureters are nondilated. BLADDER: Unremarkable. GASTROINTESTINAL TRACT: No acute findings. Small bowel, colon, rectum, appendix, stomach, and duodenum appear normal. ABDOMINAL WALL: No significant hernia is appreciated. LYMPH NODES: No abnormal lymphadenopathy is present. VASCULAR: Mild ectasia of the abdominal aorta. Infrarenal aorta measures up to 3.8 cm. Moderate to severe atheromatous calcification of the aorta and iliac vessels. PELVIC VISCERA: Unremarkable. OSSEOUS STRUCTURES: There is no suspicious lytic or blastic bone lesion. There are moderate degenerative changes in the spine. CT/CT abdomen pelvis w IV con IMPRESSION: 1. There is a Bosniak 2 type cyst in the right kidney measuring 2.3 x 0.7 x 1.7 cm, correlating with the lesion seen on ultrasound. This is a benign lesion. There is no solid renal lesion present. Kidneys otherwise image normally. 2. Mild diffuse fatty infiltration of the liver. No focal liver lesion. 3. Mild splenomegaly. 4. Ectasia of the infrarenal aorta measuring up to 3.8 cm diameter. 5. Additional ancillary findings as discussed in the body of the report. Electronically signed by: Fabiano Gillette MD 09/10/2024 04:14 PM EDT
[2024-09-10] MEDS: iohexoL 350 MG/ML 100 ML INFUS..BTL IV (15:54)
--- OUTSIDE RECORDS SUMMARY | 2024-09-10 17:22 | XMS_ITS | Clinical Summary ---
Author Organization [facility] Address [address] [place] [address] Care Team Providers Care Livestock Farm Workers Name Role Phone Tank Mills MD Primary Care Provider +1- [phone] Allergies No known active allergies Medications Medication [...] age to complete this topic Care Teams Livestock Farm Workers Relationship Specialty Start Date End Date Tank Mills MD [address] [place] [address] PCP - General Internal Medicine 04/13/23
== END 2024-09-10 14:57 | disposition home or self-care (01) ==
LOC: HO.CT 14:56
PROVIDERS: PCP Internal Medicine; Visit Provider Internal Medicine Gastroenterology
DX: N28.89 Other specified disorders of kidney and ureter (principal)
CPT/HCPCS: 74177; Q9967

== ENCOUNTER → 2024-09-10 14:57 | Outpatient (BNV) | payer MEDICARE, MEDICAID, SELFPAY | PROVIDERS: PCP Internal Medicine; Visit Provider Radiology Diagnostic Radiology | DX: N28.1 Cyst of kidney, acquired (principal) | CPT/HCPCS: 74177 ==

== ENCOUNTER 2024-09-30 10:55 | Outpatient (AMB) | payer MEDICARE, MEDICAID, SELFPAY ==
--- NOTE | 2024-09-30 11:02 | A.OFFVIS_ITS ---
Vital Signs 09/30/24 11:09 Height 5 ft 11.5 in Weight 195 lb BMI 26.8 BP 105/62 Blood Pressure Location Lt brachial Position Sitting Pulse 97 Intake Visit Reasons: F/U CT SCAN Intake Note: Cory presents in the office as a follow up CT scan. CC: states he is here for results - was told that cyst was benign - he is having issues with blisters on his legs and was told he has diabetes. Forensic Science Technician Required: No Allergies No Known Allergies Allergy (Verified 09/30/24 11:10) HPI HPI F/U CT SCAN: Details: 79-year-old male with hx of?CAD s/p GA in 2018 on aspirin and Plavix, HTN, AAA, peripheral neuropathy, COPD, [id number] type 2 diabetes, fatty liver, and GERD who I am calling for f/u RECAP: Patient had noted he was more SOB on exertion, with fatigue, and light headedness over last few weeks. Overnight he had a fall whilst on the toilet and came to the ED. work up revealed microcytic anemia with HGB 7.5 g/l having been 15.9/48.1 on 12/27/2021. he does take aspirin and plavix for cardiac health. He denies abdominal pain, chest pain, melena, hemoptysis, hematemesis, hematochezia. he had bowel motion today and was brown appearing. He may have had a colonoscopy in the distant past, can't recall details. Per chart review he had colo with Dr watson 2016 with few polyps removed and recommended to have q 5 yrs due to fh of crc He received 1 unit of PRBC. 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 VITAL SIGNS:see workflow HEENT: Nonicteric sclerae, PERRLA, EOMI. Oropharynx clear. Moist mucous membranes. Conjunctivae appear well perfused. No thyroid mass. CHEST: Chest wall is nontender. HEART: Regular rate and rhythm without murmurs. LUNGS: Clear to auscultation bilaterally. ABDOMEN: Soft, positive bowel sounds, nontender, no organomegaly.no flank tenderness Rectal exam--weak sphincter tone and expulsion SKIN: No rash, no excessive bruising, petechiae, or purpura. NEUROLOGIC: Cranial nerves II-XII intact without motor/sensory deficit. Psych: normal affect A/P: 1/ Anemia -per his report PCP checked and numbers are better 2/ possible overflow incontinence--weak sphincter on exam 3/ compensated, early cirrhosis -no varices, Ct exam and US without mass, benign kidney cyst PLAN: 1/ capsule endo to complete anemia w/u--still needs to be done 2/ await urology assessment for neuro stim--weak sohincter tone 3/ repeat US liver q 6 month 4/ get labs from [facility] Medical History Lower extremity edema Low back pain Restless legs syndrome (RLS) Pulmonary nodules GERD (gastroesophageal reflux disease) Non-alcoholic fatty liver disease Benign positional vertigo BPH (benign prostatic hyperplasia) CAD (coronary artery disease) Myocardial infarction Aortic aneurysm Cirrhosis Personal history of colonic polyps Surgical History History of heart artery stent Hx of prostate biopsy History of esophagogastroduodenoscopy (EGD) Hx of colonoscopy Family History Father Lung cancer Sister Lung cancer Social History Household Members: None Housing: House Do you presently have visiting nurse or other home services: Yes Alcohol intake: never Comment: Refused larms, call [place] within reach Patient Tobacco Use Status: Former Tobacco user Years Smoked: 19years service: No Physical Exam Vital Signs: Last Vital Signs Pulse 97 09/30/24 11:09 BP 105/62 09/30/24 11:09 BMI result Body Mass Index 26.8 Assessment & Plan Assessment & Plan (1) Incontinence of bowel: Code(s): R15.9 - Full incontinence of feces Category: Medical Plan: as above Coding Level of Care Code Est Pt Level 4 (36733) Diagnoses Incontinence of bowel R15.9
[2024-09-30 11:09] VITALS: BP 105/62; PULSE 97; BMI 26.8
--- OUTSIDE RECORDS SUMMARY | 2024-09-30 11:54 | XMS_ITS | Patient Health Record ---
Author Organization [facility] Jaylin angela AragonCortes Address [address] [place] [address] Care Team Providers Care Voice Instructor Name Role Phone Tank Mills Primary Care Provider Otoniel Winkler Unavailable [phone] Allergies No Known Allergies Results Component Value Reference Range Notes HEMOGLOBIN A1C (GLYCOHEMOGLO BIN) Reviewed date:08/09/2024 01:35:04 PM Interpretation: Performing Lab: Notes/Report: HEMOGLOBIN A1C % (HH) 5.7 Reason For Referral No Information Medications Medication SIG (Take, Route, Frequency, Duration) Notes Start Date End Date Status Aspirin Low Dose 81 MG TAKE ONE TABLET B Y MOUTH EVERY DAY Oral; Duration: 90 Days Active Famotidine 40 MG Oral; Duration: 90 Days Active Iron Active Extra Depth Orthopedic Shoes (1 Pair) with Customized Heat Molded Multidensity Innersoles (3 Pair) as directed Dx: NIDDM/Polyneuropathy (E11.42), Hammertoe Foot Deformity (M20.41,M20.42), Preulcerative Skin Lesion(s) (L85.1 08/09/2024 Active Vitamin C Active Lasix Active Bevespi Aerosphere 9-4.8 MCG/ACT INHALE TWO PUFFS BY MOUTH TWICE A DAY IN THE MORNING & IN THE EVENING Inhalation; Duration: 30 Days Active Rosuvastatin Calcium 10 MG Oral; Duration: 90 Days Active LORazepam 0.5 MG Oral; Duration: 20 Days Active Social History Tobacco Use: Social History Observation Description Date Details (start date - stop date) Never Smoker NA - NA Tobacco use other than smoking: Question Answer Notes Are you an other tobacco user? No Tobacco Control (Standard) Question Answer Notes Tobacco use: Nonsmoker Additional Findings: Tobacco non-user Current no nsmoker AUDIT-C (Standard) Question Answer Notes Did you have a drink containing alcohol in the p ast year? No Points 0 Interpretation Negative Problems Problem Type SNOMED Code ICD Code Onset Dates Problem Status W/U Status Risk Notes Problem Acquired hammer toe of right foot (679912512898 9105) Other hammer toe(s) (acquired), right foot (M20.41) Active confirmed Problem Acquired hammer toe of left foot (662624988089 9103) Other hammer toe(s) (acquired), left foot (M20.42) Active confirmed Problem Type 2 diabetes mellitus with diabetic polyneuropathy (E11.42) Active confirmed Vital Signs Blood pressure diastolic 82 mm Hg 08/09/2024 Height 5ft11.5in in 08/09/2024 Blood pressure systolic 134 mm Hg 08/09/2024 Weight 190 lbs 08/09/2024 BMI 26.13 kg/m2 08/09/2024 Procedures Procedure Date Ordered Date Performed Result Body Sit e 20371-MYORUTK NAIL, 1-5 08/09/2024 N/A 58695-PAXI SKIN LESIONS, OVER 4 08/09/2024 N/A [id number] DYSTROPHIC NAILS ANY # 08/09/2024 N/A Encounters Encounter Location Date Provider Diagnosis [facility] [address] [address] 08/09/2024 Otoniel Zurita Type 2 diabetes mellitus with diabetic polyneuropathy E11.42 ; Tinea unguium B35.1 ; Other hammer toe(s) (acquired), right foot M20.41 and Other hammer toe(s) (acquired), left foot M20.42 Assessments Encounter Date Diagnosis (ICD Code) Assessment Notes Treatment Notes Treatment Clinical Notes Section Notes 08/09/2024 Tinea unguium (ICD-10 - B35.1) 08/09/2024 Type 2 diabetes mellitus with diabetic polyneuropathy (ICD-10 - E11.42) 08/09/2024 Other hammer toe(s) (acquired), right foot (ICD-10 - M20.41) Patient Educated with: DIABETIC FOOT CARE INSTRUCTIONS. pdf (DIABETIC FOOT CARE INSTRUCTIONS. pdf) 08/09/2024 Other hammer toe(s) (acquired), left foot (ICD-10 - M20.42) Plan Of Treatment Pending Test Test Name Order Date [id number] NAIL, 1-5 08/09/2024 [id number] SKIN LESIONS, OVER 4 08/10/19 [id number] DYSTROPHIC NAILS ANY # Next Appt Details Provider Name:Otoniel Zurita , 11/01/2024 11:15:00 AM, [address] [place] [address], [id number], Insurance Providers Payer Name Payer Address Payer Phone Subscriber Number Group Number Insured Name Patient Relationship to Insured Coverage Start Date Coverage End Date [facility] [address] [place] [id number] Cory Vazquez Self - patient is the insured 4 Medical (General) History Medical History History ICD Code Back,Hip,and Knee pain CAD (Cholesterol) Diabetic Heart disease High Blood Pressure Lung disease Surgical History Surgery Date(Month/Year) lung surgery Hospitalization History Reason Date(Month/Year) [facility]- iron issues 07/19
--- OUTSIDE RECORDS SUMMARY | 2024-09-30 11:54 | XMS_ITS | Clinical Summary ---
Author Organization [facility] Address [address] [place] [address] Care Team Providers Care Mobile Crane Operator Name Role Phone Tank Mills MD Primary Care Provider Immunizations Name Administration Dates Next Due Pfizer [...] Diabetes: Blood Sugar Control Test (HGBA1C) 06/13/2024 Influenza Vaccine (#1) 2024 , 12/14/2022, 12/21/2021, Additional history exists Diabetes: Annual Urine Albumin-Creatinine Ratio (uACR) 04/22/2025 04/22/2024 Diabetes: Annual GFR (Glomerular Filtration Rate) 04/22/2025 04/22/2024, 08/15/2023, 07/27/2017 Hypertension/CHF/CAD Annual BMP Blood Test 04/22/2025 04/22/2024, 08/15/2023, 07/27/2017 Cholesterol Screening (Lipid Panel) 04/22/2029 04/22/2024 Hepatitis C Screening Completed 08/20/2020 RSV Immunization Adult Patients Completed 02/24/2023 HIB Vaccines Aged Out No longer eligi [...] age to complete this topic Care Teams Mobile Crane Operator Relationship Specialty Start Date End Date Tank Mills MD [address] [place] [address], [address] [place] [address] PCP - General Internal Medicine 04/09/21
--- OUTSIDE RECORDS SUMMARY | 2024-09-30 11:54 | XMS_ITS | Clinical Summary ---
Author Organization [facility] Address [address] [place] [address] Care Team Providers Care Dynamic Balancer Name Role Phone Tank Mills MD Primary Care Provider +1- [phone] Allergies No known active allergies Medications Medication [...] 109 04/24/2023 2:52 PM EST Temperature 36.8 C (98.2 F) 04/24/2023 2:52 PM EST Respiratory Rate - - Oxygen Saturation 96% [...] - 1-dose 75+ series) 2021 COVID-19 Vaccine ( - season) 2023 05/19/2020, 04/25/2020 Influenza Vaccine (Season Ended) 2024 12/07/2019, 01/08/2019, 01/22/2018, Additional history exists Hepatitis B Vaccines Aged Out No long er eligible based on patient's age to complete this topic RSV Ped < 20 months Aged Out No longe r eligible based on patient's age to complete this topic Care Teams Dynamic Balancer Relationship Specialty Start Date End Date Tank Mills MD [address] [place] [address] PCP - General Internal Medicine 04/13/23
== END 2024-09-30 12:19 | disposition home or self-care (01) ==
LOC: HO.HGI 10:56
PROVIDERS: PCP Internal Medicine; Visit Provider Internal Medicine Gastroenterology
DX: R15.9 Full incontinence of feces (principal)
CPT/HCPCS: 99214

== ENCOUNTER → 2024-09-30 10:55 | Outpatient (BNVA) | payer MEDICARE, MEDICAID, SELFPAY | PROVIDERS: PCP Internal Medicine; Visit Provider Internal Medicine Gastroenterology | DX: R15.9 Full incontinence of feces (principal) | CPT/HCPCS: 99212 ==

== ENCOUNTER 2024-10-22 13:28 | Outpatient (AMB) | payer MEDICARE, MEDICAID, SELFPAY ==
--- OUTSIDE RECORDS SUMMARY | 2024-10-15 04:30 | XMS_ITS ---
Author Organization [facility] Address [address] [place] [address] Care Team Providers Care Vice President Regulatory Name Role Phone [place] Primary Care Provider UnavailOtoniel Villasenor Unavailable [phone] Oliva Cabrera Unavailable [phone] Medications Medication SIG (Take, Route, Frequency, Duration) [...] Duration: 30 Days Active OneTouch Delica Plus [id number] - USE 1 LANCET DAILY DIRECTED; Duration: [...] 10/15/2024 Encounters Encounter Location Date Provider Diagnosis [facility] [place] [address] [place] [address] 10/15/2024 Oliva Cabrera Plan Of Treatment Next Appt Details Provider Name:Otonielvalarie Zurita , 11/01/2024 11:15:00 AM, [address] [place], [address], Progress Notes * Cory STEWART NDOB: [birth year] (79 yo M)Acc No.[id number]:10/15/2024 Progress Notes Patient: Cory RAO N Provider: Jannie Cabrera DPM :1945 A ge:79 Y S ex:Male Date:10/15/2024 Address:[address] [place] [address] [id number] Pcp:[place] Subjective: * Chief Complaints: * [...] enies. C ardiovascular: Pacemaker d enies. 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 W PW d enies. C [...] MG/3ML) 0.083% Nebulization Solution Inhalation , Taking Rezee Delkapturem Plus [id number] - Miscellaneous USE 1 LANCET DAILY DIRECTED [...] Pending * Provider: Jannie Cabrera DPM Date: 10/15/2024 Generated for Briana kendrick/Jose Rafael/Judith on: 10/22/2024 02:19 PM EDT
--- OUTSIDE RECORDS SUMMARY | 2024-10-16 23:59 | XMS_ITS | Continuity of Care Document ---
Author Organization [facility] Address [address] [place], [place] [address]chon lewis, [address] [place] [address]- Care Team Providers Care Collections Assistant Name Role Phone Tank Mills MD Primary Care Physician [id number] Date(s): 10/09/24 - 10/16/24 [facility] [address] [place] [address] Drive [address] [place], [place] [address] Attending Physician: Not on Staff, Attending MD Encounter Type: Office Visit Allergies, Adverse Reactions, Alerts No Known Allergies Medications Albuterol (Eqv-Ventolin HFA) 90 mcg/inh inhalation aerosol 2 puffs, Inhalation, Every 6 hours, # 18 Gm, 11 Refills, Maintenance, 10/03/24 2:19:00 PM EDT, [facility], 25, INHALE 2 PUFFS EVERY 6 HOURS, 181, cm, 08/20/24 10:36:00 EDT, Height, 92.9, kg, 06/12/24 21:16:00 EDT, Dry Weight Start Date: 10/03/24 Status: Ordered Quantity: 18.0 Unit: g Repeat number: 1 [employer], See Instructions, # 1 each, Refills 11, Tot. Refills 11, Maintenance, Diagnosis: COPD, J44.9. Nebulizer, nebulizer supplies. For use with albuterol, 1 unit dose 4 times daily. Length of need: Lifetime, 99, 10/03/23 3:36:00 PM EDT, Supply Start Date: 10/03/23 Status: Ordered Quantity: 1.0 Unit: each Repeat number: 12 aspirin 81 mg oral tablet 1 tab, Daily, 0 Refills, Maintenance, 10/31/19 8:24:00 PM EDT Start Date: 10/31/19 Status: Ordered Repeat number: 1 Bevespi Aerosphere 9 mcg-4.8 mcg/inh inhalation aerosol 2 inhalation, Inhalation, 2 times a day, in the morning and the evening j44.9, # 3 each, 3 Refills,Maintenance, 09/20/24 2:31:00 PM EDT, Aerosol, [facility], Partial fill upon patient request if the prescription is for a schedule II opioid drug., 2 inhalation Inhalation 2 times a day,Instr:in the morning and the evening j44.9, 181, cm, 08/20/24 10:36:00 EDT, Height, 92.9, kg, 06/12/24 21:16:00 EDT, Dry Weight Start Date: 09/20/24 Status: Ordered Quantity: 3.0 Unit: each Repeat number: 4 Coenzyme Q10 By Mouth, 0 Refills, Maintenance, 09/06/23 11:12:00 AM EDT, Partial fill upon patient request if theprescription is for a schedule II opioid drug. Start Date: 09/06/23 Status: Ordered Repeat number: 1 ferrous fumarate 325 mg oral tablet 1 tablet = 325 mg, By Mouth, Daily, # 30 tablet, 0 Refills, Maintenance, 06/14/24 7:52:00 AM EDT, Tablet, [facility], Partial fill upon patient request if the prescription is for a schedule II opioid drug., 181, cm, 06/13/24 22:38:00 EDT, Height, 92.9, kg, 06/12/24 21:16:00 EDT, Dry Weight Start Date: 06/14/24 Stop Date: 07/14/24 Status: Ordered Quantity: 30.0 Unit: tablet Repeat number: 1 fluticasone 50 mcg/inh nasal spray See Instructions, INSTILL 1 SPRAY INTO EACH NOSTRIL TWO TIMES DAILY; SHAKE WELL BEFORE USE, # 16 Gm, 11 Refills, Maintenance, 09/09/24 9:11:00 AM EDT, [facility], 30, INSTILL 1 SPRAYINTO EACH NOSTRIL TWO TIMES DAILY; SHAKE WELL BEFORE USE, 181, cm, 08/20/24 10:36:00 EDT, Height, 92.9, kg, 06/12/24 21:16:00 EDT, Dry Weight Start Date: 09/09/24 Status: Ordered Quantity: 16.0 Unit: g Repeat number: 1 furosemide 20 mg oral tablet 1, capsule, By Mouth, Once, # 1 tablet, Refills 0, Maintenance, 06/12/24 5:28:00 PM EDT, Partial fill upon patient request if the prescription is for a schedule II opioid drug. Start Date: 06/12/24 Status: Ordered Quantity: 1.0 Unit: tablet Repeat number: 1 glipiZIDE 5 mg oral tablet 5 mg, 1, tablet, By Mouth, Daily, # 30 tablet, Refills 0, Maintenance, 06/12/24 5:28:00 PM EDT, Partial fill upon patient request if the prescription is for a schedule II opioid drug. Start Date: 06/12/24 Status: Ordered Quantity: 30.0 Unit: tablet Repeat number: 1 LORazepam 0.5 mg oral tablet 1 tablet = 0.5 mg, By Mouth, Daily at bedtime, PRN as needed for anxiety, 0 Refills, Maintenance, 06/12/24 5:28:00 PM EDT, Tablet, Partial fill upon patient request if the prescription is for a schedule II opioid drug. Start Date: 06/12/24 Status: Ordered Repeat number: 1 metoprolol 25 mg oral tablet 25 mg, 1, tablet, By Mouth, 2 times a day, # 60 tablet, Refills 0, Maintenance, 10/31/19 8:18:00 PM EDT Start Date: 10/31/19 Status: Ordered Quantity: 60.0 Unit: tablet Repeat number: 1 Nebulizer/Compressor See Instructions, # 1 each, Refills 11, Tot. Refills 11, Maintenance, Nebulizer A7003 Neb Disp Set A7014 Neb non-Disp Filter A7005 Neb Non-Disp set A7015 Aerosol Mask A7013 Neb Disp Filter length of need lifetime 99 months for home use, 10/04/23 10:32:00 AM EDT, Supply Start Date: 10/04/23 Status: Ordered Quantity: 1.0 Unit: each Repeat number: 12 Plavix 75 mg oral tablet 75 mg, 1, tablet, By Mouth, Daily, # 30 tablet, Refills 5, Maintenance, 06/12/24 5:28:00 PM EDT, Partial fill upon patient request if the prescription is for a schedule II opioid drug. Start Date: 06/12/24 Status: Ordered Quantity: 30.0 Unit: tablet Repeat number: 1 pregabalin 200 mg oral capsule 1 capsule = 200 mg, By Mouth, 3 times a day, 0 Refills, Maintenance, 03/21/23 12:47:00 PM EST, Capsule, Partial fill upon patient request if the prescription is for a schedule II opioid drug. Start Date: 03/21/23 Status: Ordered Repeat number: 1 rosuvastatin 5 mg oral tablet 1 tablet = 5 mg, By Mouth, Daily at bedtime, 0 Refills, Maintenance, 10/31/19 8:25:00 PM EDT Start Date: 10/31/19 Status: Ordered Repeat number: 1 Vitamin C 500 mg oral tablet 1 tablet = 500 mg, By Mouth, Daily, vitamin C to be taken at the same time with iron tablet, # 30 tablet, 0 Refills, Maintenance, 06/14/24 7:53:00 AM EDT, Tablet, [facility], Partialfill upon patient request if the prescription is for a schedule II opioid drug., 181, cm, 06/13/24 22:38:00 EDT, Height, 92.9, kg, 06/12/24 21:16:00 EDT, Dry Weight Start Date: 06/14/24 Stop Date: 07/14/24 Status: Ordered Quantity: 30.0 Unit: tablet Repeat number: 1 Vitamin D3 1000 intl units oral capsule 1 capsule = 25 mcg, By Mouth, Daily, 0 Refills, Maintenance, 09/06/23 11:13:00 AM EDT, Partial fill upon patient request if the prescription is for a schedule II opioid drug. Start Date: 09/06/23 Status: Ordered Repeat number: 1 vitamin E 100 iu oral capsule 1 capsule = 100 International_Units, By Mouth, Daily, 0 Refills, Maintenance, 09/06/23 11:13:00 AM EDT, Partial fill upon patient request if the prescription is for a schedule II opioid drug. Start Date: 09/06/23 Status: Ordered Repeat number: 1 Problem List Condition Confirmation Course Effective Dates Status Health St atus Informant Symptomatic anemia Confirmed Active Chest pain Confirmed Active Diabetes mellitus Confirmed Active Hyponatremia Confirmed Active Lung cancer Confirmed Active Pitting edema Confirmed Active Social History Social History Type Response Smoking Status 10 or more cigarette s (1/2 pack or more)/day in last 30 days; Other: Patient stopped smoking 2001; entered on: 01/04/23 Sex Sex Representation Male (finding) Note * Amy Valerio: PERFORM Event Display: Patient Education/Instruction Authored Date: [id number] Ambulatory Adult Visit Summary [facility] [address] [place] [address] Drive [address] [place], [place] [id number] Name: MARIA DOLORES STEWART : 1945?? Visit: 10/09/2024 10:55?? Ambulatory Visit Instructions ?? Your Care Team Primary Care Provider Tank Mills MD? This Visit Provider Chen Buckley NP Your Diagnosis Diabetes Vitals Signs Temperature: 97.2 DegF Height: 181 cm Pulse Rate:??94 bpm??High Weight: 87 kg Systolic Blood Pressure: 100 mm Hg Body Mass Index:??26.56 kg/m2??High Diastolic Blood Pressure:??52 mm Hg??Low Body surface area: 2.09 Oxygen Saturation: 95 % ?? What to do next Instructions From Your Provider [facility] [address] [place] [address] ?? Dr. Cathie Roth MD, FCCP, FACS? Dr. Mignon Martinez MD, MPH, FACS? Dr. Pete Garza, DO, FACS? SHELLI Brock, BOOKING SUPERVISOR-BC ?? Office Phone #: [phone]? Office Fax #: [phone] ? You are being sent for the following imaging studies to be done in??6 months??(you will be called to schedule these studies unless otherwise noted): ?? -??CT chest ?? Your most recent CT scan does not show any evidence of recurrent lung cancer.?? There is a new sternal fracture that was likely from when you fell off the toilet into the side of the tube.?? This should heal on it's own and does not appear to be displaced.?? Your spleen continues to be enlarged.?? I will defer further evaluation of the spleen to your primary care doctor.?? I will reach out to hisoffice again regarding this finding and again fax the results.?? I will see you back in six months with a new CT scan of the chest.?? Please call the office sooner with any further questions or concerns.? Follow-Up Appointments Follow Up with??Marcio CHAWLA, Chen Gage When:??04/15/2025 11:30 AM EST Why: CT CHEST TO BE DONE THE WEEK BEFORE APPT Where: [address] [place] [address] [address] [facility] [address]- Future Orders CT Chest W/ Contrast, Routine, Reason for Exam: Other:, lung cancer surveillance, IV Contrast Only,Please schedule in March 2025, Once, *Est. 02/09/25 +/- 21 days Creatinine - Routine, Once, For CT scan, 10/10/23 13:38:00 EDT, Single or Recurring Future Order, [facility], Blood?? BUN - Routine, Once, To be drawn one week prior to his CT scan in September 2024, 04/11/24 12:10:00 EST,Future Order, [facility], Blood?? Creatinine - Routine, Once, To be drawn one week prior to his CT scan in September 2024, 04/11/24 12:10:00 EST, Future Order, [facility], Blood?? BUN - Routine, Once, 09/03/24 14:05:00 EDT, Single or Recurring Future Order, [facility], Blood?? Creatinine - Routine, Once, 09/03/24 14:06:00 EDT, Single or Recurring Future Order, [facility], Blood?? BUN - Routine, Once, To be drawn one week prior to CT in March 2025, 03/17/25 11:43:00 EST, Future Order, [facility], Blood?? Creatinine - Routine, Once, To be drawn one week prior to CT in March 2025, 03/17/25 11:43:00 EST, Future Order, [facility], Blood?? Medications The list below reflects the information in our records and provided by you today along with any changes made during this visit. Please continue your medications until treatment is completed or stopped by your provider. If this is different from the information you have or there are other questions,please contact the prescribing provider. What How Much When Instructions Unchanged Albuterol (Albuterol (Eqv-Ventolin HFA) 90 mcg/ inh inhalation aerosol) 2 puff(s) Inhalation Every 6 hours Unchanged Ascorbic Acid (Vitamin C 500 mg oral tablet) 1 tab(s) Oral Daily Duration: 30 Days vitamin C to be taken at the same time with iron tablet ?? Unchanged Aspirin (aspirin 81 mg oral tablet) 1 tab Daily Unchanged Cholecalciferol (Vitamin D3 1000 intl units oral capsule) 1 capsule Oral Daily Unchanged Clopidogrel (Plavix 75 mg oral tablet) 1 tab(s) Oral Daily Unchanged Durable Medical Equipment ([employer]) See instructions Diagnosis: COPD, J44.9. Nebulizer, nebulizer supplies. For use with albuterol, 1 unit dose 4 times daily. Length of need: Lifetime, 99 ?? Unchanged Durable Medical Equipment (Nebulizer/ Compressor) See instructions Nebulizer A7003 Neb Disp Set ??A7014 Neb non-Disp Filter ??A7005 Neb Non-Disp set A7015 Aerosol Mask A7013 Neb Disp Filter ??length of need lifetime 99 months ??for home use ?? Unchanged Ferrous Fumarate (ferrous fumarate 325 mg oral tablet) 1 tab(s) Oral Daily Duration: 30 Days Unchanged Fluticasone Nasal (fluticasone 50 mcg/ inh nasal spray) See instructions INSTILL 1 SPRAY INTO EACH NOSTRIL TWO TIMES DAILY; SHAKE WELL BEFORE USE ?? Unchanged formoterol-glycopyrrolate (Bevespi Aerosphere 9 mcg-4.8 mcg/ inh inhalation aerosol) 2 inhalation Inhalation Twice a day in the morning and the evening j44.9 ?? Unchanged Furosemide (furosemide 20 mg oral tablet) 1 capsule Oral Once Unchanged GlipiZIDE (glipiZIDE 5 mg oral tablet) 1 tab(s) Oral Daily Unchanged Lorazepam (LORazepam 0.5 mg oral tablet) 1 tab(s) Oral Daily at Bedtime as needed for as needed for anxiety Unchanged Metoprolol (metoprolol 25 mg oral tablet) 1 tab(s) Oral Twice a day Unchanged Pregabalin (pregabalin 200 mg oral capsule) 1 capsule Oral 3 times a day Unchanged Rosuvastatin (rosuvastatin 5 mg oral tablet) 1 tab(s) Oral Daily at Bedtime Unchanged Ubiquinone (Coenzyme Q10) Oral Unchanged Vitamin E (vitamin E 100 iu oral capsule) 1 capsule Oral Daily Test Performed Below is a partial list of the tests performed during your Visit. You may have had other tests and procedures not included in this list. Please discuss all test results with your provider. BUN?-- Results Pending -- Creatinine?-- Results Pending -- Medications and Immunizations Administered Medications Given During Visit No medications given during this visit.?? Allergies (NKA means No Known Allergies) NKA Common Emergency Awareness Tips IS IT A STROKE? Act FAST and Check for these signs: FACE Does the face look uneven? ARM Does one arm drift down? SPEECH Does their speech sound strange? TIME Call at any sign of stroke ?? Heart Attack Signs Chest discomfort: Most heart attacks involve discomfort in the center of the chest and lasts more than a few minutes, or goes away and comes back. It can feel like uncomfortable pressure, squeezing, fullness or pain. Discomfort in upper body: Symptoms can include pain or discomfort in one or both arms, back, neck, jaw or stomach. Shortness of breath: With or without discomfort. Other signs: Breaking out in a cold sweat, nausea, or lightheaded. Remember, MINUTES DO MATTER. If you experience any of these heart attack warning signs, call to get immediate medical attention! ?? Smoking can increase your chances of developing chronic health problems and can cause harmful effects to other family members in your house. If you smoke, you are strongly encouraged to quit. Please call [employer] at [phone] or [phone] ([phone]) or log in to [email or web address] for referrals to smoking cessation programs. ?? The National Suicide Prevention Hotline is available 17/10 if you or someone you know needs to find a reason to keep living. By calling 6-209-391-talk (6476) you'll be connected to a skilled, trained counselor at a crisis center in your area. [facility] [employer] Portal You can view and manage your care through the patient portal or by using a health care osmin of your choosing. [employer] is a website that allows you to securely view your medical information including your hospital discharge summary, office visit summaries, medications and follow-up visits. You can also request appointments, renew medications, and request access to your medical information using a health care osmin of your choosing, or just ask a question. You can enroll at [email or web address] or register during your next office visit. [facility], in keeping with [facility] guidance, no longer requires face masks for staff, patientsor visitors in most situations. Similiar to time spent indoors at other locations, there is the chance that you were exposed to repiratory viruses during your time with us (such as flu or COVID-19). If you develop symptoms concerning for a viral respiratory infection, please seek testing (and treatment if indicated) from your medical provider or home test kit. ?? Disclaimer: The information provided is of a general nature and is intended to be used in conjunction with the recommendations and advice of your health care practitioner. Every effort has been made to ensure that the information provided is accurate and complete at the time it is provided to you however, as your needs change, or, as new information becomes available, different or additional instructions may be required. ?? If you have questions, please consult with your primary care provider or pharmacist, as appropriate. This information is not intended to serve as substitution for assessment and evaluation by a qualified health care provider. If you do not have a primary care provider, you may find a [facility] provider by calling [facility] [employer] [facility] at [phone]. Patient Care team information Care Team Personnel Name: Ramo Pineda RN Position: [facility] RN Member Role: Primary Care Nurse Name: Tank Mills MD Position: Reference Physician Member Role: PCP Address: [address] [place] [address] Tank Mills [place], [place] [address] Telecom: Name: Lianna Martinez RN Position: [facility] RN Member Role: Primary Care Nurse Name: Machelle Quinones RN Position: [facility] RN Member Role: Primary Care Nurse Name: Lula Castorena RN Position: S RN Member Role: Primary Care Nurse Name: Kurtis Horvath RN Position: S RN Member Role: Primary Care Nurse Name: Alice Dietz RN Position: S RN Member Role: Primary Care Nurse Name: Jennifer Plummer RN Position: S RN Member Role: Primary Care Nurse Care Team Related Persons Name: JEFFERY ALVA Name: JANEL CARREON Insurance Providers Guarantor name: MARIA DOLORES [employer] Plan Information #: 1 Payer: [employer] P[employer] Payer Identifier: NA Member Number: [id number] Group Number: [id number] Subscriber Identifier: [id number] Relationship to Subscriber: self Coverage Type: Medicare PPO Coverage Verification Date: Telecom: NA Address: Critical access hospital Information #: 2 [facility] [employer] Payer Identifier: NA Member Number: [id number] Group Number: Subscriber Identifier: [id number] Relationship to Subscriber: self Coverage Type: MEDICAID Coverage Verification Date: Telecom: Address:
--- NOTE | 2024-10-22 13:35 | MHC.OFFVIS ---
Intake Visit Reasons: interstim discussion Intake Note: New Patient is present for interstim discussion Urology Rx:Tamsulosin Blood Thinners:asprin Imaging completed: 09/10/2024 (CT) Academic Success Coordinator Required: No Accompanied by: Self / Same As Patient Allergies No Known Allergies Allergy (Verified 10/22/24 13:36) HPI Comments Details: Cory is a pleasant male. He is a patient of . He is seen for the following conditions - rectal incontinence Longstanding more than 12 month Has been evaluated with gastroenterology Findings of bowel incontinence in setting of type 2 diabetes Recommendation for trial of neuromodulation placement Discussed neuromodulation Placement test leads We will need to be off anticoagulation for 5 days prior Prescription for Valium provided [facility] Medical History Lower extremity edema Low back pain Restless legs syndrome (RLS) Pulmonary nodules GERD (gastroesophageal reflux disease) Non-alcoholic fatty liver disease Benign positional vertigo BPH (benign prostatic hyperplasia) CAD (coronary artery disease) Myocardial infarction Aortic aneurysm Cirrhosis Personal history of colonic polyps Surgical History History of heart artery stent Hx of prostate biopsy History of esophagogastroduodenoscopy (EGD) Hx of colonoscopy Family History Father Lung cancer Sister Lung cancer Social History Household Members: None Housing: House Do you presently have visiting nurse or other home services: Yes Alcohol intake: never Comment: Refused larms, call [place] within reach Patient Tobacco Use Status: Former Tobacco user Years Smoked: 19years service: No Review of Systems Const Denies chills and Denies fever(s) Card Reports no additional complaints and Denies syncope Resp Denies cough GI Denies abdominal pain and Denies heartburn Reports as per HPI and Denies change in libido Neuro Denies syncope Psych Denies change in libido Endo Denies change in libido Physical Exam Const General: cooperative, healthy appearing, comfortable and no acute distress Orientation/consciousness: patient oriented x3 HEENT Face and sinus: Yes normal facial exam Mouth: moist mucous membranes Neck Neck: Yes normal visual inspection, Yes full ROM and Yes trachea midline Chest Chest palpation & inspection: normal inspection of the chest Resp Effort & Inspection: normal respiratory effort, able to speak in complete sentences and no respiratory distress GI Inspection: Yes normal to inspection Back/Spine/Pelvis Cervical Spine: normal cervical lordosis Thoracic/Lumbar Spine: thoracic and lumbar spine normal to inspection Skin General skin exam: no rashes or lesions noted Neuro General: patient oriented x3, gait normal, tone normal and moves all extremities Extrem General: Yes normal to inspection and Yes capillary refill normal Assessment & Plan Assessment & Plan (1) Incontinence of bowel: Code(s): R15.9 - Full incontinence of feces Category: Medical Plan Risks, benefits and alternatives to therapy were discussed. These include but are not limited to infection, bleeding, damage to local organs and tissues, need for further interventions. Anesthetic risks regarding cardiac arrhythmia, blood clots, and potential mortality were discussed. The patient understands the typical recovery time and the outpatient nature of the procedure. After consideration of these risks the patient gives full informed consent and they wish to move ahead with the procedure. - neuromodulation step 1 Medications: New diazepam Take medication after arrival at office 2 mg PO BID PRN 2 tabs 0RF anxiety 1 day R15.9 - Full incontinence of feces, R45.89 - Other symptoms and signs involving emotional state Patient Instructions: This note is constructed using voice recognition software. While every effort has been made to ensure accuracy progress worker errors may have been included. Imaging studies, laboratory and physical exam results were discussed and reviewed in detail. No major barriers to patient understanding were identified. An opportunity to ask questions regarding the treatment plan was provided. All questions were answered. The patient expressed understanding and agreement with the above treatment plan. The patient is aware they should contact our office by phone for worsening of their current condition or the appearance of new urologic symptoms. Compliance is encouraged with any medications and followup testing that is ordered. It is a privilege to participate in the urologic care of your patient. If you have any questions or concerns regarding treatment for the above conditions, or other urologic issues, please do not hesitate to contact me. The office telephone contact is [phone]. Sincerely, Dr Garrett Bledsoe MD, [facility] - Urology Compassionate Specialist Care for the Genitourinary System Coding Level of Care Code New Pt Level 4 (36569) Diagnoses Incontinence of bowel R15.9
--- OUTSIDE RECORDS SUMMARY | 2024-10-22 14:20 | XMS_ITS | Encounter Summary ---
Author Organization [facility] Address [address] [facility] [address] [place] [address] Phone Care Team Providers Care Digital Media Sales Consultant Name Role Phone Tank Mills MD Primary Care Provider [phone] Encounter Details Date Type Department Care Team (Late st Contact Info) Description 01/14/2017 Ancillary Orders [facility] [address] [place] [address] Paul Coburn MD [address] [place] [address], [address] [address] [email or web address] Social History Tobacco Use Types Packs/Day Years Used Date Smoking Tobacco: Never Assessed Sex and Gender Information Value Date Recorded Sex Assigned at Not on file Legal Sex Male 4:34 PM EST Gender Identity Not on file Sexual Orientation Not on file documented as of this encounter Plan of Treatment Upcoming Encounters Date Type Department Care Team (Late st Contact Info) Description 11/08/2024 11:40 AM EDT Office Visit [facility] [address] 3rd Floor, [address] [place] [address] Paul Coburn MD [address] [place] [address], [address] [phone] 01/07/2025 11:00 AM EDT Nutrition [facility] [address] [place] [address] [place] [address] Delfina Askew MD [address] [place] [address], [address] [place] [address] Ev Ny LDN [address] [facility], [address] [place] [address] documented as of this encounter Visit Diagnoses Not on filedocumented in this encounter Additional Health Concerns Infection Onset Date Last Indicated Resolved Time CoV-Risk 04/23/2020 04/23/2020 05/03/2020 1:24 AM EST CoV-Risk 04/25/2022 04/25/2022 05/06/2022 1:22 AM EST CoV-Risk 06/02/2022 06/02/2022 06/13/2022 1:22 AM EDT CoV-Risk 06/17/2022 06/17/2022 06/28/2022 1:22 AM EDT CoV-Risk 02/09/2024 02/09/2024 02/20/2024 1:22 AM EST documented as of this encounter Care Teams Digital Media Sales Consultant Relationship Specialty Start Date End Date Tank Mills MD [address] [facility], [address] [place] [address] [email or web address] PCP - General 01/10/17 documented as of this encounter Additional Source Comments The information contained in this document represents components of the legal health record. It is not the complete legal health record.[facility]
--- OUTSIDE RECORDS SUMMARY | 2024-10-22 14:20 | XMS_ITS | Clinical Summary ---
Author Organization [facility] Address [address] [place] [address] Care Team Providers Care Director Of Materials Management Name Role Phone Tank Mills MD Primary Care Provider [phone] Immunizations Name Administration Dates Next Due Pfizer [...] - Pfizer risk series) 06/16/2020 05/19/2020, 04/25/2020 Falls Risk Assessment 02/27/2022 Social Influencers of Health Screening 02/27/2022 Depression Screening 03/27/2024 Diabetes: Blood Sugar Control Test (HGBA1C) 06/13/2024 [...] age to complete this topic Care Teams Director Of Materials Management Relationship Specialty Start Date End Date Tank Mills MD [address] [place] [address], [address] [place] [address] PCP - General Internal Medicine 04/09/21
--- OUTSIDE RECORDS SUMMARY | 2024-10-22 14:20 | XMS_ITS | Clinical Summary ---
Author Organization [facility] Address [address] [place] [address] Care Team Providers Care Health Sanitarian Name Role Phone Tank Mills MD Primary Care Provider [phone] Allergies No known active allergies Medications Medication [...] season) 2023 05/19/2020, 04/25/2020 Influenza Vaccine (#1) 2024 0, 01/08/2019, 01/22/2018, Additional history exists Hepatitis B Vaccines Aged Out No long er eligible based on patient's age to complete this topic RSV Ped < 20 months Aged Out No longe r eligible based on patient's age to complete this topic Care Teams Health Sanitarian Relationship Specialty Start Date End Date Tank Mills MD [address] [place] [address] PCP - General Internal Medicine 04/13/23
== END 2024-10-22 14:38 | disposition home or self-care (01) ==
LOC: HO.HUSH 13:28
PROVIDERS: PCP Internal Medicine; Visit Provider Urology
DX: R15.9 Full incontinence of feces (principal); Z13.9 Encounter for screening, unspecified
CPT/HCPCS: 99204

== ENCOUNTER → 2024-10-22 13:28 | Outpatient (BNVA) | payer MEDICARE, MEDICAID, SELFPAY | PROVIDERS: PCP Internal Medicine; Visit Provider Urology | DX: Z01.818 Encounter for other preprocedural examination (principal); R15.9 Full incontinence of feces | CPT/HCPCS: 81003; 99202 ==

== ENCOUNTER 2025-01-16 12:52 | Outpatient (REF) | payer MEDICARE, OTHER, SELFPAY ==
--- NOTE | 2025-01-16 15:38 | MHC.SHP ---
Pre-Procedural Eval Section A - 24 Hr Update-Section A only Date of Service: 01/16/25 The patient is an INPATIENT: No Changes since office visit: No Cold of Flu in the past 2 weeks, No New Medical Problems, No Changes in Medication and No Patient answered all questions The patient has been examined within 24 hours of the surgical procedure. The History & Physical has been completed within 30 days and I have reviewed it.: No Section B - Complete if H&P > 30 days Chief Complaint: Neuromodulation Bowel test Details of Present Illness: Stage 1 trial Relevant Family History (Specify if Yes): No Relevant Social History: None Present Medications: see Short Stay Collaborative assessment Medical History: No relevant PMH History of Previous Operations: No relevant previous surgery Allergies: Allergies Allergy/AdvReac Type Severity Reaction Status Date / Time No Known Allergies Allergy Verified 10/22/24 13:36 Review of Systems Sugical H&P ROS: Negative: Constitution, Cardiovascular, Respiratory, Neurological, Psychiatric, Hem-Onc, Allergic/Immunologic, Gastrointestinal, Genitourinary, Musculoskeletal, Integumentary, Endocrine and Eyes/Ears/Nose/Throat Exam Surgical H&P Exam: Normal: HEENT, Normal: Heart, Normal: Lungs, Normal: Extremities, Normal: Abdomen, Normal: Skin and Normal: Neurological Plan Diagnosis/Plan: Unchanged I have reviewed the history and physical and performed a pertinent physical examination on my patient. No changes have occurred unless specified. Time Spent With Patient Time: Total time managing care of this patient today ____ minutes.
--- NOTE | 2025-01-16 15:38 | W.PM.OPN ---
Operative Note Operative Note Date of Service: 01/16/25 Narrative: PreOperative Diagnosis: 1) Overactive bladder with urinary urgency and frequency with incontinence 2) Rectal Incontinence Post Operative Diagnosis: 1) Overactive bladder with urinary urgency and frequency with incontinence (N39.41, R35.0) 2) Rectal Incontinence (R15.9) Procedure: 1.) Percutaneous implantation of neurostimulator electrode array including image guidance - performed bilateral - left and right S3 foramen Surgeon: Dr Garrett Bledsoe Anesthesia: sedation Indications for procedure: - Failed multiple (more than 2) anticholinergic medications in attempt to manage urinary urgency and frequency - Assessment with gastroenterology for rectal incontinence Procedure: After informed consent was verified the patient was brought to the interventional radiology suite. The patient was placed in a prone position and prepped and draped in a sterile fashion. Safety pause time-out was performed. Using the C-arm and Finder needle the S3 foramen exiting from the pelvic arch was marked horizontally from left to right as our horizontal marker. The left and right medial aspect of foramen were highlighted and aligned with the finder needle in a vertical fashion. Lines were marked. The intersection of these lines marked the entry point on the skin of the medial aspect of the left and right S3 foramen. Due to her body habitus normal positioning melo on the skin were in quite different position compared to typical. Local anesthetic was infiltrated along the vertical aspect on both sides. The finder needle was inserted initially into the left targeted foramen. Imaging was performed in AP and lateral fashion. The needle was shown to into the S4 foramen. The quality tester was attached and assessed for placement with Yolande response. A second needle was placed on the left side at S4 level with similar response. The needle was repositioned and entry into the right S3 foramen was confirmed. Response seen at 2.0A levels A 2nd needle was placed for entry into the left S3 foramen. The quality tester was attached and assessed for placement with Yolande response and toe movement. Good responses were confirmed at low amperage (under 2.0A) bilateral. Starting with the right side. The internal introducer from the needle was removed and the quality tester placed. The needle was carefully removed and imaging used to confirm good placement of quality tester. This procedure was repeated on the left side. The two test leads were then attached to the test generator and appropriate dressing was applied in order to maintain integrity for the duration of the outpatient test sequence. CPT 25570, plus 64600-72 for second lead placement. Inclusive of image guidance, 46868 - simple programming
== END 2025-01-16 12:53 | disposition home or self-care (01) ==
LOC: HO.RADIR 12:52
PROVIDERS: Visit Provider Urology
DX: N39.41 Urge incontinence (principal); R35.0 Frequency of micturition; R15.9 Full incontinence of feces
CPT/HCPCS: 64561; C1778; C1897; J2003

== ENCOUNTER → 2025-01-16 12:52 | Outpatient (BNV) | payer MEDICARE, SELFPAY | PROVIDERS: Visit Provider Urology | DX: N39.41 Urge incontinence (principal); R35.0 Frequency of micturition; R15.9 Full incontinence of feces | CPT/HCPCS: 64561 ==

== ENCOUNTER 2025-01-23 10:05 | Outpatient (AMB) | payer MEDICARE, MEDICAID, SELFPAY ==
--- OUTSIDE RECORDS SUMMARY | 2024-10-15 04:30 | XMS_ITS ---
Author Organization [facility] Address [address] [place] [address] Care Team Providers Care Director Technical Name Role Phone [place] Primary Care Provider UnavailOtoniel Villasenor Unavailable [phone] Oliva Cabrera Unavailable [phone] Medications Medication SIG (Take, Route, Frequency, Duration) Notes Start Date End Date Status Azithromycin 250 MG TAKE 2 TABLETS ON FI RST DAY , THEN 1 TABLET DAILY FOR 4 DAYS Oral; Duration: 5 Days Active metFORMIN HCl ER 500 MG TAKE ONE TABLET BY MOUTH EVERY DAY WITH DINNER Oral; Duration: 30 Days Active Brilinta 90 MG TAKE 1 TABLET BY CONG TH TWO TIMES A DAY Oral; Duration: 30 Days Active Aspirin Low Dose 81 MG TAKE ONE TABLET B Y MOUTH EVERY DAY Oral; Duration: 90 Days Active Fluticasone Propionate 50 MCG/ACT INSTILL 1 SPRAY INTO EACH NOSTRIL TWO TIMES DAILY; SHAKE WELL BEFORE USE Nasal; Duration: 30 Days Active Famotidine 40 MG TAKE ONE TABLET BY M OUTH DAILY AT BEDTIME Oral; Duration: 90 Days Active HYDROcodone-Acetaminophen 5-325 MG Oral; Duration: 2 Days Activ e LORazepam 0.5 MG Oral; Duration: 20 Days Active Fluticasone-Salmeterol 113-14 MCG/ACT Inhalation; Duration: 30 Days Active Omeprazole 40 MG TAKE ONE CAPSULE BY MOUTH EVERY DAY Oral; Duration: 90 Days Active Rosuvastatin Calcium 10 MG Oral; Duration: 90 Days Active predniSONE 20 MG Oral; Duration: 5 Days Active Famotidine 20 MG Oral; Duration: 10 Days Active glipiZIDE ER 5 MG Oral; Duration: 90 Days Active Furosemide 20 MG Oral; Duration: 60 Days Active Pregabalin 200 MG TAKE ONE CAPSULE BY MOUTH THREE TIMES A DAY Oral; Duration: 90 Days Active Albuterol Sulfate HFA 108 (90 Base) MCG/ACT Inhalation; Duration: 25 Days Active Mirtazapine 7.5 MG Oral; Duration: 30 Days Active OneTouch Delica Plus [id number] - USE 1 LANCET DAILY DIRECTED; Duration: 90 Days Active Albuterol Sulfate (2.5 MG/3ML) 0.083% Inhalation; Duration: 30 Days Active Clopidogrel Bisulfate 75 MG Oral; Duration: 87 Days Active Ferrous Gluconate 324 (38 Fe) MG TAKE 1 TABLET BY MOUTH THREE TIMES A WEEK ON MONDAY, MONDAY, AND MONDAY Oral; Duration: 70 Days Active Metoprolol Tartrate 25 MG Oral; Duration: 90 Days Active Vitamin C 500 MG TAKE ONE TABLET BY M OUTH EVERY DAY Oral; Duration: 90 Days Active Ferretts 325 (106 Fe) MG TAKE ONE TABLET BY MOUTH EVERY DAY Oral; Duration: 30 Days Active Melatonin [address] ONE TABLET UND ER THE TONGUE NIGHTLY AT BEDTIME Sublingual; Duration: 90 Days Active Dicyclomine HCl 10 MG Oral; Duration: 15 Days Active Bevespi Aerosphere 9-4.8 MCG/ACT Inhalation; Duration: 30 Days Active Social History Tobacco Use: Social [...] ast year? No Points 0 Interpretation Negative Vital Signs Height 5 ft in 10/15/2024 Weight 195 lbs 10/15/2024 BMI 38.08 kg/m2 10/15/2024 Encounters Encounter Location Date Provider Diagnosis [facility] [place] [address] [place] [address] 10/15/2024 Oliva Cabrera Plan Of Treatment Next Appt Details Provider Name:Otonielvalarie Zurita , 05/06/2025 03:15:00 PM, [address] [place], [address], Progress Notes * Cory STEWART NDOB: [birth year] (79 yo M)Acc No.[id number]:10/15/2024 Progress Notes Patient: Cory RAO N Provider: Jannie Cabrera DPM :1945 A ge:79 Y S ex:Male Date:10/15/2024 Address:[address] [place] [address] [id number] Pcp:[place] Subjective: * Chief Complaints: * * ROS: G eneral/Constitutional: Nausea d enies. V omiting d enies. H dayo Thirst d enies. L oss appetite d enies. C hills d enies. F atigue d enies.?Fever d enies. N ight Sweats d enies. U nexplained weight loss d enies. U nexplained weight gain d enies. H EENTM: Dentures d enies. D izziness d enies. G lasses/contacts d enies. R etinopathy d enies. B lurred/double vision d enies. T MJ?denies. D ischarge/drainage d enies. I mplants d enies. S ore throat d enies. D ental implants d enies. H ariella of hearing d enies. D ifficulty chewing/swallowing/speaking d enies. N ose bleeds d enies. S ore mouth d enies. ? R espiratory: On Oxygen d enies. P neumonia/pleurisy d enies.?Bronchitis d enies. E mphysema d enies. C oughing d enies. C ough blood?denies. S hortness of breath d enies. W heezing d enies. C ardiovascular: Pacemaker d enies. 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 W PW d enies. C HF d enies. H eart attack d enies. S eptal defect d enies. R apid beat d enies. C hest pain d enies. A trial Fib. d enies. M urmur/Palpitations d enies. G astrointestinal: Hemorrhoids d enies. S tomach/Abdominal pain d enies. D ark blood stool d enies. I rritable bowel d enies. C onstipation d enies. D iarrhea d enies. H ematology: Swelling d enies. C lots d enies. V aricose Veins d enies. B ruising d enies. B leeding problem d enies. G enitourinary: Blood urine d enies. F requent/Painfu/urination/bladder control d enies. K idney stones d enies. I nfection (UTI) d enies. N ephropathy d enies. s ex trans dis (STD) d enies. P rostate d enies. M usculoskeletal: Hammertoes d enies. B unions d enies. B ack Pain d enies. M uscle Cramps/ Resting d enies. M uscle cramps / walking d enies.?Generalized aches and pains d enies. W eakness d enies. I nteg.: Ramirez d enies. S cars d enies. C orns/calluses?denies. I ngrown nails d enies. P ainful nails d enies. O pen Sores d enies. R ashes d enies. N eurologic: Difficulty sleeping d enies. B rain disorder d enies. N umbness d enies. B alance trouble d enies. C onfusion d enies. F ainting/blackouts d enies. T ingling d enies. T remors d enies. * Medical History: B ack,Hip,and Knee pain, CAD (Cholesterol), Diabetic, Heart disease, High Blood Pressure, Lung disease. * Family History: M other: , diagnosed with Diabetic - NIDDM. F ather: . * Social History: T obacco Use: T obacco use other than smoking A re you an other tobacco user? N o Tobacco Control (Standard) T obacco use: N onsmoker A dditional Findings: Tobacco non-user C urrent nonsmoker D rugs/Alcohol: D rugs H ave you used drugs other than those for medical reasons in the past 12 months? N o M iscellaneous: C affeine: yes, frequency:. Marital status: Single. D rug/Alcohol: A ROMÁN-C (Standard) D id you have a drink containing alcohol in the past year? N o P oints 0 I nterpretation N egative * Medications: T aking Bevespi Aerosphere 9-4.8 MCG/ACT Aerosol Inhalation , Taking Dicyclomine HCl 10 MG Capsule Oral , Taking Melatonin [address] ONE TABLET UNDER THE TONGUE NIGHTLY AT BEDTIME Sublingual , Taking Vitamin C 500 MG Tablet TAKE ONE TABLET BY MOUTH EVERY DAY Oral , Taking Metoprolol Tartrate 25 MG Tablet Oral , Taking Ferrous Gluconate 324 (38 Fe) MG Tablet TAKE 1 TABLET BY MOUTH THREE TIMES A WEEK ON MONDAY, MONDAY, AND MONDAY Oral , Taking Clopidogrel Bisulfate 75 MG Tablet Oral , Taking Ferretts 325 (106 Fe) MG Tablet TAKE ONE TABLET BY MOUTH EVERY DAY Oral , Taking Albuterol Sulfate (2.5 MG/3ML) 0.083% Nebulization Solution Inhalation , Taking Scopix Del8villages Plus [id number] - Miscellaneous USE 1 LANCET DAILY DIRECTED , Taking Mirtazapine 7.5 MG Tablet Oral , Taking Albuterol Sulfate HFA 108 (90 Base) MCG/ACT Aerosol Solution Inhalation , Taking Pregabalin 200 MG Capsule TAKE ONE CAPSULE BY MOUTH THREE TIMES A DAY Oral , Taking Furosemide 20 MG Tablet Oral , Taking glipiZIDE ER 5 MG Tablet Extended Release 24 Hour Oral , Taking Famotidine 20 MG Tablet Oral , Taking predniSONE 20 MG Tablet Oral , Taking Rosuvastatin Calcium 10 MG Tablet Oral , Taking Omeprazole 40 MG Capsule Delayed Release TAKE ONE CAPSULE BY MOUTH EVERY DAY Oral , Taking Fluticasone-Salmeterol 113-14 MCG/ACT Aerosol Powder Breath Activated Inhalation , Taking LORazepam 0.5 MG Tablet Oral , Taking HYDROcodone-Acetaminophen 5-325 MG Tablet Oral , Taking Famotidine 40 MG Tablet TAKE ONE TABLET BY MOUTH DAILY AT BEDTIME Oral , Taking Fluticasone Propionate 50 MCG/ACT Suspension INSTILL 1 SPRAY INTO EACH NOSTRIL TWO TIMES DAILY; SHAKE WELL BEFORE USE Nasal , Taking Aspirin Low Dose 81 MG Tablet Delayed Release TAKE ONE TABLET BY MOUTH EVERY DAY Oral , Taking Brilinta 90 MG Tablet TAKE 1 TABLET BY MOUTH TWO TIMES A DAY Oral , Taking metFORMIN HCl ER 500 MG Tablet Extended Release 24 Hour TAKE ONE TABLET BY MOUTH EVERY DAY WITH DINNER Oral , Taking Azithromycin 250 MG Tablet TAKE 2 TABLETS ON FIRST DAY , THEN 1 TABLET DAILY FOR 4 DAYS Oral Objective: * Vitals: H t:5 ft, Wt:195, BMI: 38.08, Shoe size:10.5, Ht-cm: 152.4 cm, Wt-k.45 kg. Assessment: Plan: * Treatment: * Images: * The named appointment provid er may or may not be the originator of this progress note, and it is not deemed complete until electronically signed by the appointment provider. Sign off status: Pending * Provider: Jannie Cabrera DPM Date: 0 10/15/2024 Generated for Briana kendrick/Jose Rafael/Judith on: 1 12:06 PM EDT
--- OUTSIDE RECORDS SUMMARY | 2024-11-01 07:15 | XMS_ITS ---
Author Organization [facility] Address [address] [place] [address] Care Team Providers Care Safety Patrol Officer Name Role Phone Tank Mills Primary Care Provider Unavailabl Otoniel Haley Unavailable [phone] Encounters Encounter Location Date Provider Diagnosis [address] [address] 11/01/2024 Otoniel Zurita Plan Of Treatment Next Appt Details Provider Name:Otoniel Zurita , 05/06/2025 03:15:00 PM, [address] [place], [address], Progress Notes * Cory STEWART NDOB: [birth year] (79 yo M)Acc No.[id number]:11/01/2024 Progress Note Patient: Shaheed GARCIA Cory Augustine Provider: Darrian Zurita DPM :1945 A ge:79 Y S ex:Male Date:11/01/2024 Address:[address] [place], [place] [id number] Pcp:Tank Mills Subjective: * Chief Complaints: * * Medical History: Objective: * Vitals: Assessment: Plan: * Treatment: * Images: * The named appointment provid er may or may not be the originator of this progress note, and it is not deemed complete until electronically signed by the appointment provider. Sign off status: Pending * Provider: Darrian Zurita DPM Date: 0 11/01/2024 Generated for Briana kendrick/Jose Rafael/eTransmitting on: 1 12:05 PM EDT
--- OUTSIDE RECORDS SUMMARY | 2025-01-17 06:15 | XMS_ITS ---
Author Organization [facility] Address [address] [place] [address] Care Team Providers Care Body Designer Name Role Phone Tank Mills Primary Care Provider Unavailabl Otoniel Haley Unavailable [phone] REASON FOR VISIT Seen Sooner Encounters Encounter Location Date Provider Diagnosis [address] [address] 01/17/2025 Otoniel Zurita Plan Of Treatment Next Appt Details Provider Name:Otoniel Zurita , 05/06/2025 03:15:00 PM, [address] [place], [address], Progress Notes * Cory STEWART NDOB: [birth year] (79 yo M)Acc No.[id number]:01/17/2025 Progress Note Patient: Shaheed Cory GARCIA Provider: Darrian Zurita DPM :1945 A ge:79 Y S ex:Male Date:01/17/2025 Address:[address] [place] [address] [id number] Pcp:Tank Mills Subjective: * Chief Complaints: * 1 . Seen Sooner. * Medical History: Objective: * Vitals: Assessment: Plan: * Treatment: * Images: * The named appointment provid er may or may not be the originator of this progress note, and it is not deemed complete until electronically signed by the appointment provider. Sign off status: Pending * Provider: Darrian Zurita DPM Date: Generated for Briana kendrick/Jose Rafael/Landryitting on: 12:07 PM EDT
--- NOTE | 2025-01-23 10:10 | A.OFFVIS_ITS ---
Intake Visit Reasons: Neuromodulation lead removal Intake Note: Patient is present for PostOp Neuromodulation Lead Remval Urology Rx:Tamsulosin VIT-C Blood Thinners:asprin Imaging completed: 09/10/2024 (CT) Robot Programmer Required: No Accompanied by: Self / Same As Patient Allergies No Known Allergies Allergy (Verified 01/23/25 10:11) HPI Comments Details: Cory is a pleasant male. He is a patient of . He is seen for the following conditions - rectal incontinence Underwent phase 1 neuromodulation Noticed benefit for 1st 72 hours Since then unsure about beneficial nature He will call if wants to proceed [facility] Medical History Lower extremity edema Low back pain Restless legs syndrome (RLS) Pulmonary nodules GERD (gastroesophageal reflux disease) Non-alcoholic fatty liver disease Benign positional vertigo BPH (benign prostatic hyperplasia) CAD (coronary artery disease) Myocardial infarction Aortic aneurysm Cirrhosis Personal history of colonic polyps Surgical History History of heart artery stent Hx of prostate biopsy History of esophagogastroduodenoscopy (EGD) Hx of colonoscopy Family History Father Lung cancer Sister Lung cancer Social History Household Members: None Housing: House Do you presently have visiting nurse or other home services: Yes Alcohol intake: never Comment: Refused larms, call [facility] within reach Patient Tobacco Use Status: Former Tobacco user Years Smoked: 19years service: No Review of Systems Const Denies chills and Denies fever(s) Card Reports no additional complaints and Denies syncope Resp Denies cough GI Denies abdominal pain and Denies heartburn Reports as per HPI and Denies change in libido Neuro Denies syncope Psych Denies change in libido Endo Denies change in libido Physical Exam Const General: cooperative, healthy appearing, comfortable and no acute distress Orientation/consciousness: patient oriented x3 HEENT Face and sinus: Yes normal facial exam Mouth: moist mucous membranes Neck Neck: Yes normal visual inspection, Yes full ROM and Yes trachea midline Chest Chest palpation & inspection: normal inspection of the chest Resp Effort & Inspection: normal respiratory effort, able to speak in complete sentences and no respiratory distress GI Inspection: Yes normal to inspection Back/Spine/Pelvis Cervical Spine: normal cervical lordosis Thoracic/Lumbar Spine: thoracic and lumbar spine normal to inspection Skin General skin exam: no rashes or lesions noted Neuro General: patient oriented x3, gait normal, tone normal and moves all extremities Extrem General: Yes normal to inspection and Yes capillary refill normal Assessment & Plan Assessment & Plan (1) Incontinence of bowel: Code(s): R15.9 - Full incontinence of feces Category: Medical Plan Follow-up 12 month renal imaging Patient Instructions: This note is constructed using voice recognition software. While every effort has been made to ensure accuracy dehydrogenation supervisor errors may have been included. Imaging studies, laboratory and physical exam results were discussed and reviewed in detail. No major barriers to patient understanding were identified. An opportunity to ask questions regarding the treatment plan was provided. All questions were answered. The patient expressed understanding and agreement with the above treatment plan. The patient is aware they should contact our office by phone for worsening of their current condition or the appearance of new urologic symptoms. Compliance is encouraged with any medications and followup testing that is ordered. It is a privilege to participate in the urologic care of your patient. If you have any questions or concerns regarding treatment for the above conditions, or other urologic issues, please do not hesitate to contact me. The office telephon e contact is [phone]. Sincerely, Dr Garrett Bledsoe MD, [facility] - Urology Compassionate Specialist Care for the Genitourinary System Coding Level of Care Code Est Pt Level 3 (44032) Diagnoses Incontinence of bowel R15.9
--- OUTSIDE RECORDS SUMMARY | 2025-01-23 12:05 | XMS_ITS | Encounter Summary ---
Author Organization [facility] Address [address] [facility] [address] [place] [address] Phone Care Team Providers Care Energy And Conservation Technician Name Role Phone Tank Mills MD Primary Care Provider [phone] Encounter Details Date Type Department Care Team (Late st Contact Info) Description 01/14/2017 Ancillary [facility] [address] [place] [address] Paul Coburn MD [address] [place] [address], [address] [address] Social History Tobacco Use Types Packs/Day Years Used Date Smoking Tobacco: Never Assessed Sex and Gender Information Value Date Recorded Sex Assigned at Not on file Legal Sex Male 4:34 PM EST Gender Identity Not on file Sexual Orientation Not on file documented as of this encounter Plan of Treatment Upcoming Encounters Date Type Department Care Team (Late st Contact Info) Description 01/27/2025 2:15 PM EST Office Visit [facility] [address] [place] [address] [place] [address] Tank Mills MD [address] [place] [address], [address] [place] [address] 05/13/2025 11:00 AM EST Appointment [facility] [address] 3rd [place] [address] Paul Coburn MD [address] [place] [address], [address] [place] [address] [email or web address] 05/19/2025 11:00 AM EST Nutrition [facility] [address] [place] [address] Ev Ny LDN 22 [facility], 1st [place] [address] [email or web address] 05/26/2025 11:00 AM EST Office Visit [facility] [address] [facility] 3rd Floor, [address] [place] [address] Paul Coburn MD [address] [facility], [address] [place] [address] [email or web address] documented as of this encounter Visit Diagnoses [...] documented as of this encounter Care Teams Energy And Conservation Technician Relationship Specialty Start Date End Date Tank Mills MD [address] [facility], [address] [place] [address] PCP - General 01/10/17 documented as of this encounter Additional Source Comments The information contained in this document represents components of the legal health record. It is not the complete legal health record.[facility]
--- OUTSIDE RECORDS SUMMARY | 2025-01-23 12:05 | XMS_ITS | Clinical Summary ---
Author Organization [facility] Address [address] [place] [address] Care Team Providers Care Emissions Engineer Name Role Phone Tank Mills MD Primary Care Provider [phone] Allergies No known active allergies Medications Medication [...] series) 2021 COVID-19 Vaccine (3 - season) 2024 05/19/2020, 04/25/2020 Influenza Vaccine (#1) 2024 0, 01/08/2019, 01/22/2018, Additional history exists Hepatitis B Vaccines Aged Out No long er eligible based on patient's age to complete this topic RSV Ped < 20 months Aged Out No longe r eligible based on patient's age to complete this topic Care Teams Emissions Engineer Relationship Specialty Start Date End Date Tank Mills MD [address] [place] [address] PCP - General Internal Medicine 04/13/23
--- OUTSIDE RECORDS SUMMARY | 2025-01-23 12:05 | XMS_ITS | Encounter Summary ---
Author Organization [facility] Address [address] [facility] [address] [place] [address] Phone Care Team Providers Care Psychiatric Nurse Practitioner Name Role Phone Tank Mills MD Primary Care Provider [phone] Reason for Referral * Physical Therapy (Routine) - Closed Specialty Diagnoses / Procedures Referred By Woody t Referred To Contact Physical Therapy Diagnoses Encounter for rehabilitation Tank Mills MD Phone: tel: fax: [email or web address] [address] [place] [address] Phone: tel: Referral ID Status Reason Start Date Expiration Date Visits Re quested Visits Authorized [id number] Closed 02/08/2017 02/08/2018 1 1 Encounter Details Date Type Department Care Team (Latest Contact Info) Description 02/08/2017 Transcribe Orders [facility] [address] [place] [address] Tank Mills MD 22 [facility], [address] [place] [address] Encounter for rehabilitation (Primary Dx) Social History Tobacco Use Types Packs/Day Years [...] Description 01/27/2025 2:15 PM EST Office Visit [facility] [address] [place] [address] [place] [address] Tank Mills MD [address] [place] [address], [address] [place] [address] 05/13/2025 11:00 AM EST Appointment [facility] [address] 3rd [place] [address] Paul Coburn MD [address] [place] [address], [address] [place] [address] [email or web address] 05/19/2025 11:00 AM EST Nutrition [facility] [address] [place] [address] [place] [address] Ev Ny LDN [address] [place] [address], 1st [place] [address] [email or web address] 05/26/2025 11:00 AM EST Office Visit [facility] [address] [place] [address] 3rd Floor, [address] [place] [address] Paul Coburn MD [address] [place] [address], [address] [address] [email or web address] Scheduled Referrals Name Type Priority Associated Diagnoses Orde r Schedule Ambulatory referral to [facility] Physical Therapy Outpatient Referral Routine Encounter for rehabilitation Ordered: 02/08/2017 documented as of this encounter Visit Diagnoses Diagnosis Encounter for rehabilitation- Primary documented in this encounter Additional Health Concerns Infection Onset Date Last Indicated Resolved Time CoV-Risk 04/23/2020 04/23/2020 05/03/2020 1:24 AM EST CoV-Risk 04/25/2022 04/25/2022 05/06/2022 1:22 AM EST CoV-Risk 06/02/2022 06/02/2022 06/13/2022 1:22 AM EDT CoV-Risk 06/17/2022 06/17/2022 06/28/2022 1:22 AM EDT CoV-Risk 02/09/2024 02/09/2024 02/20/2024 1:22 AM EST documented as of this encounter Care Teams Psychiatric Nurse Practitioner Relationship Specialty Start Date End Date Tank Mills MD [address] [place] [address], [address] [place] [address] [email or web address] PCP - General 01/10/17 documented as of this encounter Additional Source Comments The information contained in this document represents components of the legal health record. It is not the complete legal health record.[facility]
--- OUTSIDE RECORDS SUMMARY | 2025-01-23 12:06 | XMS_ITS | Encounter Summary ---
Author Organization [facility] Address [address] [facility] [address] [place] [address] Phone Care Team Providers Care Aircraft Electrical Systems Specialist Name Role Phone Tank Mills MD Primary Care Provider [phone] Encounter Details Date Type Department Care Team (Late st Contact Info) Description 08/17/2020 Procedure Pass Echo Lab [address] [place] [address] Social History Tobacco Use Types Packs/Day Years Used Date Smoking Tobacco: Former Cigarettes 1.5 40 1 04/30/1960 - 02/27/2001 Smokeless Tobacco: Never Alcohol Use Standard Drinks/Week Comments No 0 (1 standard drink = 0.6 oz pur e alcohol) Sex and Gender Information Value Date Recorded Sex Assigned at Not on file Legal Sex Male 4:34 PM EST Gender Identity Not on file Sexual Orientation Not on file 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 file Not on file Not on file documented as of this encounter Plan of Treatment Upcoming Encounters Date Type Department Care Team (Late st Contact Info) Description 01/27/2025 2:15 PM EST Office Visit [facility] [address] [place] [address] [place] [address] Tank Mills MD [address] [place] [address], [address] [place] [address] 05/13/2025 11:00 AM EST Appointment [facility] [address] 3rd [place] [address] Paul Coburn MD [address] [place] [address], [address] [place] [address] 05/19/2025 11:00 AM EST Nutrition [facility] [address] [place] [address] Ev Ny LDN [address] [facility], 1st [place] [address] 05/26/2025 11:00 AM EST Office Visit [facility] [address] Floor, [address] [place] [address] Paul Coburn MD [address] [place] [address], [address] [address] documented as of this encounter Visit Diagnoses Not on filedocumented in this encounter Additional Health Concerns Infection Onset Date Last Indicated Resolved Time CoV-Risk 04/25/2022 04/25/2022 05/06/2022 1:22 AM EST CoV-Risk 06/02/2022 06/02/2022 06/13/2022 1:22 AM EDT CoV-Risk 06/17/2022 06/17/2022 06/28/2022 1:22 AM EDT CoV-Risk 02/09/2024 02/09/2024 02/20/2024 1:22 AM EST Assessment Noted Time PHQ-2 Depression Total Score: 0 03/26/20 1:42 PM EST documented as of this encounter Care Teams Aircraft Electrical Systems Specialist Relationship Specialty Start Date End Date Tank Mills MD [address] [place] [address], [address] [place] [address] PCP - General 01/10/17 documented as of this encounter Additional Source Comments The information contained in this document represents components of the legal health record. It is not the complete legal health record.[facility]
--- OUTSIDE RECORDS SUMMARY | 2025-01-23 12:06 | XMS_ITS | Encounter Summary ---
Author Organization [facility] Address [address] [facility] [address] [place] [address] Phone Care Team Providers Care Apparel Designer Name Role Phone Tank Mills MD Primary Care Provider [phone] Encounter Details Date Type Department Care Team (Late st Contact Info) Description 01/14/2017 Ancillary Orders Non-Invasive Cardiology [address] [place] [address] [place] [address] Paul Coburn MD [address] [place] [address], [address] [address] [email or web address] Diagnosis unknown Social History Tobacco Use Types Packs/Day Years [...] 01/27/2025 2:15 PM EST Office Visit [facility] [address] [place] [address] [place] [address] Tank Mills MD [address] [place] [address], [address] [place] [address] 05/13/2025 11:00 AM EST Appointment [facility] [address] 3rd [place] [address] Paul Coburn MD [address] [place] [address], [address] [place] [address] 05/19/2025 11:00 AM EST Nutrition [facility] [address] [place] [address] Ev Ny LDN [address] [facility], 1st [place] [address] 05/26/2025 11:00 AM EST Office Visit [facility] [address] [facility] 3rd Floor, [address] [place] [address] Paul Coburn MD [address] [facility], [address] [place] [address] documented as of this encounter Visit Diagnoses Diagnosis Diagnosis unknown documented in this encounter Additional Health Concerns Infection Onset Date Last Indicated Resolved Time CoV-Risk 04/23/2020 04/23/2020 05/03/2020 1:24 AM EST CoV-Risk 04/25/2022 04/25/2022 05/06/2022 1:22 AM EST CoV-Risk 06/02/2022 06/02/2022 06/13/2022 1:22 AM EDT CoV-Risk 06/17/2022 06/17/2022 06/28/2022 1:22 AM EDT CoV-Risk 02/09/2024 02/09/2024 02/20/2024 1:22 AM EST documented as of this encounter Care Teams Apparel Designer Relationship Specialty Start Date End Date Tank Mills MD [address] [facility], [address] [place] [address] PCP - General 01/10/17 documented as of this encounter Additional Source Comments The information contained in this document represents components of the legal health record. It is not the complete legal health record.[facility]
--- OUTSIDE RECORDS SUMMARY | 2025-01-23 12:06 | XMS_ITS | Encounter Summary ---
Author Organization [facility] Address [address] [facility] [address] [place] [address] Phone Care Team Providers Care Donor Center Technician Name Role Phone Tank Mills MD Primary Care Provider [phone] Encounter Details Date Type Department Care Team (Late st Contact Info) Description 09/20/2023 Procedure Pass Echo Lab [address] [place] [address] Social History Tobacco Use Types Packs/Day Years Used Date Smoking Tobacco: Former Cigarettes 1.5 40 1 04/30/1960 - 02/27/2001 Smokeless Tobacco: Never Alcohol Use Standard Drinks/Week Comments No 0 (1 standard drink = 0.6 oz pur e alcohol) Education Answer Date Recorded Are you interested in more education? Not on leo e 07/22/2022 Are you concerned about learning? Not on file 07/22/2022 No 07/22/2022 No 07/22/2022 Digital Access Answer Date Recorded No 08/16/2022 No 08/16/2022 Reliable internet access at home? Not on file 08/16/2022 Device with a working camera? Not on file Sex and Gender Information Value Date Recorded Sex Assigned at Not on file Legal Sex Male 4:34 PM EST Gender Identity Not on file Sexual Orientation Not on file Occupation Industry Job Start Date Job End Date [employer] Not on file Not on file Not on file documented as of this encounter Plan of Treatment Upcoming Encounters Date Type Department Care Team (Late st Contact Info) Description 01/27/2025 2:15 PM EST Office Visit [facility] [address] [place] [address] Tank Mills MD [address] [place] [address], [address] [place] [address] 05/13/2025 11:00 AM EST Appointment [facility] [address]rd [place] [address] Paul Coburn MD [address] [place] [address], [address] [place] [address] [email or web address] 05/19/2025 11:00 AM EST Nutrition [facility] [address] [place] [address] Ev Ny LDN [address] [place] [address], 1st [place] [address] 05/26/2025 11:00 AM EST Office Visit [facility] [address] [place] [address] 3rd Floor, [address] [place] [address] Paul Coburn MD [address] [place] [address], [address] [address] documented as of this encounter Visit Diagnoses Not on filedocumented in this encounter Additional Health Concerns Infection Onset Date Last Indicated Resolved Time CoV-Risk 02/09/2024 02/09/2024 02/20/2024 1:22 AM EST Assessment Noted Time PHQ-2 Depression Total Score: 0 03/26/20 20 1:42 PM EST documented as of this encounter Care Teams Donor Center Technician Relationship Specialty Start Date End Date Tank Mills MD [address] [place] [address], [address] [place] [address] PCP - General 01/10/17 documented as of this encounter Additional Source Comments The information contained in this document represents components of the legal health record. It is not the complete legal health record.[facility]
--- OUTSIDE RECORDS SUMMARY | 2025-01-23 12:06 | XMS_ITS | Clinical Summary ---
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 Weight 86.2 kg (190 lb) 11/29/2024 10:20 AM EDT Height 180.3 cm (5' 10.98 ) 11/29/2024 10:20 AM EDT Body Mass Index 26.51 11/29/2024 10:20 AM EDT Plan of Treatment Upcoming Encounters Date Type Department Care Team (Late st Contact Info) Description 01/27/2025 2:15 PM EST Office Visit [facility] Medicine [address] [place] [address] [place] [address] Tank Mills MD [address] [place] [address], [address] [place] [address] 05/13/2025 11:00 AM EST Appointment [facility] [address] [place] [address] Paul Coburn MD [address] [place] [address], [address] [place] [address] 05/19/2025 11:00 AM EST Nutrition [facility] [address] [place] [address] [place] [address] Ev Ny LDN [address] [place] [address], 1st [place] [address] 05/26/2025 11:00 AM EST Office Visit [facility] [address] [place] [address] [address] [facility], [address] [place] [address] Paul Coburn MD [address] [place] [address], [address] [place], [place] [id number] [email or web address] Health Maintenance Due Date Last Done Comments DIABETIC EYE EXAM 02/09/2024 INFLUENZA VACCINE (#1) 2024 , 12/10/2023, 12/14/2022, Additional history exists COVID-19 VACCINE (2024- season) 2024 12/10/2023, 02/15/2022, 12/21/2021, Additional history exists HEMOGLOBIN A1C 03/08/2025 09/06/2024, 03/28, 08/17/2020, Additional history exists LIPID PANEL 04/22/2025 04/22/2024, 07/26, 06/16/2023, Additional history exists URINE MICROALBUMIN/CREATININE RATIO 04/22/2025 04/22/2024 BLOOD PRESSURE 05/29/2025 11/29/2024 DEPRESSION SCREENING 11/29/2025 11/29/2024 PNEUMOCOCCAL VACCINES (50+ years) (2 of 2 - PPSV23) 04/23/2035 02/16/2016 Postponed from 04/12/2016 (Patient Declines / Guardian Declines) ZOSTER VACCINES (1 of 2) 04/23/2035 07/07/2016 Pos tponed from 09/01/2016 (Patient Declines / Guardian Declines) Adult Td,Tdap Booster 04/21/2036 Postpo ming from 1945 (Patient Declines / Guardian Declines) HEPATITIS C SCREENING Completed 08/20/2020, 019 RSV VACCINE Completed 02/24/2023 SMOKING STATUS SCREENING (Once After 26 Yrs) Completed 11/29/2024 HEPATITIS A VACCINES Aged Out No long er eligible based on patient's age to complete this topic HIB VACCINES Aged Out No longer eligi ble based on patient's age to complete this topic MENINGOCOCCAL VACCINES (ACWY) Aged Out No longer eligible based on patient's age to complete this topic MENINGOCOCCAL VACCINES (B) Aged Out N o longer eligible based on patient's age to complete this topic Medical Devices Not on file Procedures Procedure Name Priority Date/Time Associated Diagnosis Comments OUTSIDE IMAGING Routine 11/27/2024 9:46 AM EDT OUTSIDE ECG Routine 11/26/2024 2:45 PM EDT OUTSIDE IMAGING Routine 11/26/2024 10:31 AM EDT HEMOGLOBIN A1C Routine 09/06/2024 12:20 PM EDT Type 2 diabetes mellitus with hyperglycemia, without long-term current use of insulin MICROALBUMIN/CREAT ININE RATIO, RANDOM URINE Routine 04/22/2024 2:39 PM EST Type 2 diabetes mellitus with hyperglycemia, without long-term current use of insulin LIPID PANEL Routine 04/22/2024 12:44 PM EST Pure hypercholesterolemia HEPATITIS C ANTIBODY, QUALITATIVE Routine 08/20/2020 12:02 PM EDT Elevated transaminase level from Last 3 Months or Most Recently Relevant to Health Maintenance Results * Outside Imaging Report Only (11/27/2024 9:46 AM EDT) us Unknown Unknown IMG XR CHEST Edited Result - Final * Outside ECG Report Only (11/26/2024 2:45 PM EDT) Historical Provider ECG ORDERABLES Final Res ult * Outside Imaging Report Only (11/26/2024 10:31 AM EDT) Historical Provider IMG XR CHEST Final Res ult * Hemoglobin A1c (09/06/2024 12:20 PM EDT) HEMOGLOBIN A1C 5.3 4.3 - 5.8 % [facility] Blood 09/06/2024 12:2 0 PM EDT 09/06/2024 12:26 PM EDT us Tank Mills MD LAB BLOOD ORDERABLES Final Resu lt [address] [address] * (ABNORMAL) Microalbumin/creatinine ratio, random urine (04/22/2024 2:39 PM EST) URINE MICROALBUMIN 2.8(H) 0 - 2.3 mg/dL [facility] URINE CREATININE 46 mg/dL [facility] MICROALB/CRE RATIO 60.9(H) 0 - 20 mg/g Cre [facility] Urine (Urine) 04/22/2024 2:3 9 PM EST 04/22/2024 7:43 PM EST us Tank Mills MD URINE ORDERABLES Final Result Performing Organization Address City/[facility] Co de Phone Number [address] [address] * (ABNORMAL) Lipid panel (04/22/2024 12:44 PM EST) HDL 22 mg/dL [facility] Comment: Interpretation <40 mg/dL: Low HDL cholesterol (major risk factor for CHD) Greater than or equal to 60 mg/dL: High HDL cholesterol ( negative risk factor for CHD) HDL - cholesterol is affected by a number of factors, e.g. smoking, excerise, hormones, sex and age. CHOLESTEROL 91 0 - 240 mg/dL [facility] TRIGLYCERIDES 194(H) 30 - 160 mg/dL [facility] LDL 30(L) 50 - 129 mg/dL [facility] Comment: LDL levels in terms of risk for coronary heart disease: <100 mg/dL: Optimal 100-129 mg/dL: Near or above optimal 130-159 mg/dL: Borderline high 160-189 mg/dL: High >190 mg/dL: Very High CARDIAC RISK RATIO 4.1 3.4 - 5.0 C [facility] Blood 04/22/2024 12:4 4 PM EST 04/22/2024 1:35 PM EST us Paul Coburn MD LAB BLOOD ORDERABLES Final Result [facility] [address] [place] [address] * Hepatitis C antibody, qualitative (08/20/2020 12:02 PM EDT) HCV NON-REACTIV E NON-REACTI VE [facility] Blood 08/20/2020 12:0 2 PM EDT 08/20/2020 12:20 PM EDT us Tank Mills MD LAB BLOOD ORDERABLES Final Resu lt [facility] [address] [place] [address] from Last 3 Months or Most Recently Relevant to Health Maintenance Insurance MED[place] PART [place] [id number] [employer] PREF[employer]ED PPO REPLACEMENT [facility] [employer] MEDICARE PART A & B [employer] PREF[employer]PO REPLACEMENT [facility] [employer] [employer] [place]REF[place]ED [place]PO REPLACEMENT MEDICARE PART A & B [employer] [place]REF[employer]PO REPLACEMENT MEDICARE PART A & B [employer] PREF[employer]PO REPLACEMENT [facility] MEDICARE PART A & B [employer] [place]PO REPLACEMENT MEDICARE PART A & B [employer] [employer] [place]REF[employer] PPO REPLACEMENT [facility] MEDICARE PART A & B [employer] PREF[employer] PPO REPLACEMENT [facility] MEDICARE PART A & B [employer] PREF[employer]ED PPO REPLACEMENT [facility] [employer] REPLACEMENT Care Teams Volunteer Patient Representative Relationship Specialty Start Date End Date Tank Mills MD [address] [place] [address], [address] [place] [address] PCP - General 01/10/17 Additional Source Comments The information contained in this document represents components of the legal health record. It is not the complete legal health record.[facility]
--- OUTSIDE RECORDS SUMMARY | 2025-01-23 12:06 | XMS_ITS | Encounter Summary ---
Author Organization [facility] Address [address] [facility] [address] [place] [address] Phone Care Team Providers Care Central Office Worker Name Role Phone Tank Mills MD Primary Care Provider [phone] Encounter Details Date Type Department Care Team ([facility] Contact Info) Description 11/29/2019 Ancillary Orders [facility],Outside Imaging [address] [place], [place] [id number] System, Provider Not In, [place] [address] Social History Tobacco Use Types Packs/Day Years Used Date Smoking Tobacco: Former Cigarettes Q uit: 02/27/2001 Smokeless Tobacco: Never Alcohol Use Standard Drinks/Week Comments No 0 (1 standard drink = 0.6 oz pur e alcohol) Sex and Gender Information Value Date Recorded Sex Assigned at Not on file Legal Sex Male 4:34 PM EST Gender Identity Not on file Sexual Orientation Not on file 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, [address] [place] [address] 05/13/2025 11:00 AM EST Appointment [facility] [address] 3rd [place] [address] Paul Coburn MD [address] [facility], [address] [place] [address] [email or web address] 05/19/2025 11:00 AM EST Nutrition [facility] Center [address] [place] [address] Ev Ny LDN [address] [facility], 1st [place] [address] [email or web address] 05/26/2025 11:00 AM EST Office Visit [facility] [address] 3rd Floor, [address] [place] [address] Paul Coburn MD [address] [facility], [address] [place] [address] [email or web address] documented as of this encounter Results * CT Chest Outside (No Interpretation) (10/31/2019 12:05 AM EDT) Narrative Lucy Fields - 11/29/2019 2:31 PM EDT This study is for PACS storage only and not for interpretation. Procedure Note Luyc Fields - 11/29/2019 This study is for PACS storage only and not for interpretation. us Provider Not In System PhD IMG OUTSIDE IMAGING W /OUT INTERPRETATION Final Result * XR Chest Outside (No Interpretation) (10/31/2019 12:00 AM EDT) Narrative SYSTEMGENERATED, DOCUMENTATION - 11/29/2019 2:30 PM EDT This study is for PACS storage only and not for interpretation. us Provider Not In System PhD IMG OUTSIDE IMAGING W /OUT INTERPRETATION Final Result documented in this encounter Visit Diagnoses Not on filedocumented in this encounter Additional Health Concerns Infection Onset Date Last Indicated Resolved Time CoV-Risk 04/23/2020 04/23/2020 05/03/2020 1:24 AM EST CoV-Risk 04/25/2022 04/25/2022 05/06/2022 1:22 AM EST CoV-Risk 06/02/2022 06/02/2022 06/13/2022 1:22 AM EDT CoV-Risk 06/17/2022 06/17/2022 06/28/2022 1:22 AM EDT CoV-Risk 02/09/2024 02/09/2024 02/20/2024 1:22 AM EST documented as of this encounter Care Teams Central Office Worker Relationship Specialty Start Date End Date Tank Mills MD [address] [place] [address], [address] [place] [id number] [email or web address] PCP - General 01/10/17 documented as of this encounter Additional Source Comments The information contained in this document represents components of the legal health record. It is not the complete legal health record.[facility]
--- OUTSIDE RECORDS SUMMARY | 2025-01-23 12:06 | XMS_ITS | Encounter Summary ---
Author Organization [facility] Address [address] [place] [address] Phone Care Team Providers Care Acquisition Marketing Coordinator Name Role Phone Tank Mills MD Primary Care Provider [phone] Reason for Visit * Reason Onset Date Comments Medication Problem 01/23/2023 Encounter Details Date Type Department Care Team (Late st Contact Info) Description 01/23/2023 Telephone [facility] Medicine [address] [place] [address] Josefa Clark, RN [address] [place] [address] [email or web address] Medication Problem Social History Tobacco Use Types Packs/Day Years [...] 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 Patient had surgery today so I spoke with his sister. She will have him call us next week to confirm pharmacy information. * Josefa Clark RN - 01/24/2023 1:51 PM EDT Images from the original note were not included. Tank Mills MD Kongo, Delany N, RN Yesterday (12:37 PM) PE I think most of the topical steroids are in this type of ointment base. ??He could try 1% hydrocortisone cream [id number] Spoke to patient, notified per Dr. Mills re: steroid creams. He will try 1% hydrocortisone. Re: prescriptions to [facility] on 03/27- patient states he has received approval from [facility] to switch to their insurance plan, should receive his insurance card within the next 10 days, though coverage will not start until March 27. The supply of most of his current medications should last until then, but there are one or two that he will likely need to refill prior to the end of the year. We discussed sending his prescriptions, with the exception of pregabalin, to [facility] [place] with start date of 03/27, though I did express concern that the pharmacy may not allow a start date so far out. Spoke to SHERYL Rodriges. Unsure what the limit is for delayed start date on prescription. Setting personal reminder for myself to address this in mid-February * Josefa Clark RN - 01/24/2023 9:57 AM EDT Patient LVM re: same * Josefa Clark RN - 01/23/2023 10:21 AM EDT Patient LVM, would like to add that as of 03/27 all his prescriptions will need to go to [facility] in [place] as he is switching insurances to [facility]. * Josefa Clark RN - 01/23/2023 9:55 AM EDT Patient LVRocio, states the cream he was prescribed at his last visit is very greasy like putting Vaseline in my skin . Asks if there is something that would work into his skin better? It is greasy to the point where he doesn't want anything to touch his arm after applying the cream documented in this encounter Plan of Treatment Upcoming Encounters Date Type Department Care Team (Late st Contact Info) Description 01/27/2025 2:15 PM EST Office Visit [facility] Family Medicine [address] [place] [address] [place] [address] Tank Mills MD [address] [place] [address], [address] [place] [address] 05/13/2025 11:00 AM EST Appointment [facility] [address] [place] [address] Paul Coburn MD [address] [place] [address], [address] [place] [address] 05/19/2025 11:00 AM EST Nutrition [facility] [address] [place] [address] [place] [address] Ev Ny LDN [address] [place] [address], 1st [place] [address] 05/26/2025 11:00 AM EST Office Visit [facility] [address] [place] [address] 3rd Floor, [address] [place] [address] Paul Coburn MD [address] [facility], [address] [place] [address] [email or web address] documented as of this encounter Visit Diagnoses Diagnosis Contact dermatitis, unspecified contact dermatitis type, unspecified trigger Essential hypertension Unspecified essential hypertension Mixed hyperlipidemia Rosacea documented in this encounter Additional Health Concerns Infection Onset Date Last Indicated Resolved Time CoV-Risk 02/09/2024 02/09/2024 02/20/2024 1:22 AM EST Assessment Noted Time PHQ-2 Depression Total Score: 0 03/26/20 20 1:42 PM EST documented as of this encounter Care Teams Acquisition Marketing Coordinator Relationship Specialty Start Date End Date Tank Mills MD [address] [place] [address], [address] [place] [address] [email or web address] PCP - General 01/10/17 documented as of this encounter Additional Source Comments The information contained in this document represents components of the legal health record. It is not the complete legal health record.[facility]
--- OUTSIDE RECORDS SUMMARY | 2025-01-23 12:06 | XMS_ITS | Encounter Summary ---
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 Not on file Not on file documented as of this encounter Plan of Treatment Upcoming Encounters Date Type Department Care Team (Late Contact Info) Description 01/27/2025 2:15 PM EST Office Visit [facility] Medicine [address] [place] [address] [place] [address] Tank Mills MD [address] [place] [address], [address] [place] [address] [email or web address] 05/13/2025 11:00 AM EST Appointment [facility] [address] 3rd [place] [address] Paul Coburn MD [address] [place] [address] [address] [place] [address] 05/19/2025 11:00 AM EST Nutrition [facility] [address] [place] [address] Ev Ny LDN [address] [facility], 1st [place] [address] 05/26/2025 11:00 AM EST Office Visit [facility] [address] [facility] 3rd Floor, [address] [place] [address] Paul Coburn MD [address] [place] [address], [address] [address] documented as of this encounter Visit Diagnoses [...] documented as of this encounter Care Teams Nutrition Services Manager Relationship Specialty Start Date End Date Tank Mills MD [address] [facility], [address] [place] [address] PCP - General 01/10/17 documented as of this encounter Additional Source Comments The information contained in this document represents components of the legal health record. It is not the complete legal health record.[facility]
--- OUTSIDE RECORDS SUMMARY | 2025-01-23 12:07 | XMS_ITS | Encounter Summary ---
Author Organization [facility] Address [address] [facility] [address] [place] [address] Phone Care Team Providers Care Manufacturing Plant Technician Name Role Phone Tank Mills MD Primary Care Provider [phone] Reason for Referral * Consultation (Within 2 weeks) - Authorized Specialty Diagnoses / Procedures Referred By Contjennifer t Referred To Contact Diagnoses Encounter for follow-up surveillance of lung cancer Tank Mills MD Phone: tel: fax: [email or web address] Chen Buckley, OIL WELL SHOOTER [address] [place] [address] [place] [address] Phone: tel: fax: Referral ID Status Reason Start Date Expiration Date V isits Requested Visits Authorized [id number] Authorized 04/11/2024 04/11/2025 6 6 Encounter Details Date Type Department Care Team (Latest Contact Info) Description 05/08/2024 Transcribe Orders [facility] [address] [place] [address] [email or web address] Encounter for follow-up surveillance of lung cancer (Primary Dx) Social History Tobacco Use Types [...] Industry Job Start Date Job End Date [employer] Not on file Not on file Not on file documented as of this encounter Plan of Treatment Upcoming Encounters Date Type Department Care Team (Late st Contact Info) Description 01/27/2025 2:15 PM EST Office Visit [facility] Family Medicine [address] [place] [address] [place] [address] Tank Mills MD [address] [place] [address], [address] [place] [address] 05/13/2025 11:00 AM EST Appointment [facility] [address] [place] [address] Paul Coburn MD [address] [place] [address], [address] [place] [address] 05/19/2025 11:00 AM EST Nutrition [facility] Center [address] [place] [place] [address] [place] [address] Ev Ny LDN [address] [place] [address], 1st [place] [address] 05/26/2025 11:00 AM EST Office Visit [facility] [address] [place] [place] [address] [address] [facility], [address] [place] [address] Paul Coburn MD [address] [facility], [address] [place] [address] [email or web address] Scheduled Referrals Name Type Priority Associated Diagnoses Orde r Schedule Ambulatory referral to External Thoracic Surgery Outpatient Referral Routine Encounter for follow-up surveillance of lung cancer Ordered: 05/10/2024 documented as of this encounter Visit Diagnoses Diagnosis Encounter for follow-up surveillance of lung cancer- Primary documented in this encounter Additional Health Concerns Assessment Noted Time PHQ-2 Depression Total Score: 0 03/26/20 20 1:42 PM EST documented as of this encounter Care Teams Manufacturing Plant Technician Relationship Specialty Start Date End Date Tank Mills MD [address] [facility], [address] [place] [address] [email or web address] PCP - General 01/10/17 documented as of this encounter Additional Source Comments The information contained in this document represents components of the legal health record. It is not the complete legal health record.[facility]
--- OUTSIDE RECORDS SUMMARY | 2025-01-23 12:07 | XMS_ITS | Encounter Summary ---
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 Not on file documented as of this encounter Plan of Treatment Upcoming Encounters Date Type Department Care Team (Late st Contact Info) Description 01/27/2025 2:15 PM EST Office Visit [facility] [address] [place] [address] Tank Mills MD [address] [place] [address], [address] [place] [address] 05/13/2025 11:00 AM EST Appointment [facility] [address] 3rd [place] [address] Paul Coburn MD [address] [place] [address], [address] [place] [address] 05/19/2025 11:00 AM EST Nutrition [facility] [address] [place] [address] [place] [address] Ev Ny, SAMANTHA [address] [place] [address], 1st [place] [address] 05/26/2025 11:00 AM EST Office Visit [facility] [address] [place] [address] 3rd [facility], [address] [place] [address] Paul Coburn MD [address] [place] [address], [address] [address] documented as of this encounter Visit Diagnoses Not on filedocumented in this encounter Additional Health Concerns Infection Onset Date Last Indicated Resolved Time CoV-Risk 02/09/2024 02/09/2024 02/20/2024 1:22 AM EST Assessment Noted Time PHQ-2 Depression Total Score: 0 03/26/20 20 1:42 PM EST documented as of this encounter Care Teams Die Drawing Checker Relationship Specialty Start Date End Date Tank Mills MD [address] [place] [address], [address] [place] [address] PCP - General 01/10/17 documented as of this encounter Additional Source Comments The information contained in this document represents components of the legal health record. It is not the complete legal health record.[facility]
--- OUTSIDE RECORDS SUMMARY | 2025-01-23 12:07 | XMS_ITS | Encounter Summary ---
Author Organization 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 on file documented as of this encounter Plan of Treatment Upcoming Encounters Date Type Department Care Team (Late st Contact Info) Description 01/27/2025 2:15 PM EST Office Visit [place] [address] [place] [address] Tank Mills MD [address] [place] [address], [address] [place] [address] 05/13/2025 11:00 AM EST Appointment [facility] [address] 3rd [place] [address] Paul Coburn MD [address] [place] [address], [address] [place] [address] 05/19/2025 11:00 AM EST Nutrition [facility] [address] [place] [address] [place] [address] Ev Ny, SAMANTHA [address] [place] [address], 1st [place] [address] 05/26/2025 11:00 AM EST Office Visit [facility] [address] [place] [address] 3rd [facility], [address] [place] [address] Paul Coburn MD [address] [place] [address], [address] [address] documented as of this encounter Visit Diagnoses Not on filedocumented in this encounter Additional Health Concerns Infection Onset Date Last Indicated Resolved Time CoV-Risk 02/09/2024 02/09/2024 02/20/2024 1:22 AM EST Assessment Noted Time PHQ-2 Depression Total Score: 0 03/26/20 20 1:42 PM EST documented as of this encounter Care Teams Hydrogen Power Plant Manager Relationship Specialty Start Date End Date Tank Mills MD [address] [place] [address], [address] [place] [address] PCP - General 01/10/17 documented as of this encounter Additional Source Comments The information contained in this document represents components of the legal health record. It is not the complete legal health record.[facility]
--- OUTSIDE RECORDS SUMMARY | 2025-01-23 12:07 | XMS_ITS | Encounter Summary ---
Author Organization [facility] Address [address] [facility] [address] [place] [address] Phone Care Team Providers Care Financial Retirement Plan Specialist Name Role Phone Tank Mills MD Primary Care Provider [phone] Reason for Visit * Reason Onset Date Comments mona patiño 10/30/2023 Encounter Details Date Type Department Care Team (Late st Contact Info) Description 10/30/2023 Nurse Triage [facility] [address] [place] [address] Dasha Hodge, RN [address] [place] [address] [email or web address] [email or web address] Social History Tobacco Use Types Packs/Day Years [...] 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 Verbalized understanding. He would like me to send me message to Dr. Coburn to see if there are any concerns. He states he did not know Plavix was a blood thinner. Advised I would send message to Dr. Coburn and that if there are any concerns from a cardiological standpoint that one of his nurses will reach out. * Dasha Hodge RN - 10/31/2023 12:35 PM EDT Patient LVM looking to hear back to see if PCP reviewed his issue. * Samaria Rivera RN - 10/31/2023 11:16 AM EDT Images from the original note were not included. * Samaria Rivera RN - 10/31/2023 9:42 AM EDT Spoke with patient. He notes that he has noticed increased bruising on both arms. He states that hegets black and blue spots on his arms for no reason. No obvious new injuries. He does not have any pain, swelling, open areas on the arms. Discussed that he recently was started on Plavix 75mg per Dr. Coburn. Discussed that bruising easily is a common side effect of Plavix and to be careful getting around so as not to hurt himself. Advised to monitor the area over the next few days and call us if bruising spreads or gets worse. He verbalized understanding. Would like to know if PCP has any concerns. Nurse Triage Encounter Note Reason for Triage Cory Vazquez Donat contacted office for Other Call Disposition Schedule Visit Within 2 Business Days Disposition Comments: Patient/caregiver understands and will follow disposition: Care Advice Patient/Caregiver understands and will follow care advice?: Yes, plans to follow advice [id number] Samaria Rivera RN Oct 31, 2023 09:53 AM Disposition and First Aid SEE IN OFFICE TODAY OR TOMORROW: * You need to be examined. Let me give you an appointment. Go there today. A nearby Urgent Care Center is often a good source of care. PAIN MEDICINES: * For pain relief, you can take either acetaminophen, ibuprofen, or naproxen. * They are nzpe-gej-hxpufla (OTC) pain drugs. You can buy them at the drugstore. * ACETAMINOPHEN - REGULAR STRENGTH TYLENOL: Take 650 mg (two 325 mg pills) by mouth every 4 to 6 hours as needed. Each Regular Strength Tylenol pill has 325 mg of acetaminophen. The most you should take each day is 3,250 mg (10 pills a day). * ACETAMINOPHEN - EXTRA STRENGTH TYLENOL: Take 1,000 mg (two 500 mg pills) every 8 hours as needed.Each Extra Strength Tylenol pill has 500 mg of acetaminophen. The most you should take each day is 3,000 mg (6 pills a day). * IBUPROFEN (E.G., MOTRIN, ADVIL): Take 400 mg (two 200 mg pills) by mouth every 6 hours. The most you should take each day is 1,200 mg (six 200 mg pills), unless your doctor has told you to take more. * NAPROXEN (E.G., ALEVE): Take 220 mg (one 220 mg pill) by mouth every 8 to 12 hours as needed. Youmay take 440 mg (two 220 mg pills) for your first dose. The most you should take each day is 660 mg(three 220 mg pills a day), unless your doctor has told you to take more. CALL BACK IF: * Bruise is not fading by 10 days * Bruise persists over 3 weeks * You become worse Patient will call back with additional questions or if symptoms change or worsen Samaria Rivera RN Reason for Disposition and Assessment Reason for Disposition Taking Coumadin (warfarin) or other strong blood thinner, or known bleeding disorder (e.g., thrombocytopenia) Protocols used: [id number] * Josefa Clark RN - 10/31/2023 9:02 AM EDT Patient LVM requesting OV due to symptoms described in his message from 10/29 * Josefa Clark RN - 10/30/2023 1:47 PM EDT Left message, requested call back with best time to reach * Dasha Hodge RN - 10/30/2023 12:54 PM EDT Patient LVM stating he needs to see Dr. Mills. He is getting red botches on his arms and big black and blue melo for no reason. He does not bang his arm and he gets them. documented in this encounter Plan of Treatment Upcoming Encounters Date Type Department Care Team (Late st Contact Info) Description 01/27/2025 2:15 PM EST Office Visit [facility] [address] [place] [address] [place] [address] Tank Mills MD [address] [place] [address], [address] [place] [address] 05/13/2025 11:00 AM EST Appointment [facility] [address] 3rd [place] [address] Paul Coburn MD [address] [place] [address], [address] [place] [address] 05/19/2025 11:00 AM EST Nutrition [facility] [address] [place] [address] [place] [address] Ev Ny LDN [address] [place] [address], 1st [place] [address] 05/26/2025 11:00 AM EST Office Visit [facility] [address] [place] [address] [address] Floor, [address] [place] [address] Paul Coburn MD [address] [facility], [address] [place] [address] [email or web address] documented as of this encounter Visit Diagnoses Not on filedocumented in this encounter Additional Health Concerns Infection Onset Date Last Indicated Resolved Time CoV-Risk 02/09/2024 02/09/2024 02/20/2024 1:22 AM EST Assessment Noted Time PHQ-2 Depression Total Score: 0 03/26/20 20 1:42 PM EST documented as of this encounter Care Teams Financial Retirement Plan Specialist Relationship Specialty Start Date End Date Tank Mills MD [address] [place] [address], [address] [place] [address] PCP - General 01/10/17 documented as of this encounter Additional Source Comments The information contained in this document represents components of the legal health record. It is not the complete legal health record.[facility]
--- OUTSIDE RECORDS SUMMARY | 2025-01-23 12:07 | XMS_ITS | Encounter Summary ---
Author Organization [facility] Address [address] [facility] [address] [place] [address] Phone Care Team Providers Care Patient Carrier Name Role Phone Tank Mills MD Primary Care Provider [phone] Reason for Referral * MRI/CAT Scan - Closed Specialty Diagnoses / Procedures Referred By Contac t Referred To Contact Radiology Diagnoses Precordial pain Procedures NC Stress Result for Nuclear Stress Test Yariel Bethea MD Phone: tel: fax: [email or web address] 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 file Not on file documented as of this encounter Plan of Treatment Upcoming Encounters Date Type Department Care Team (Late st Contact Info) Description 01/27/2025 2:15 PM EST Office Visit [facility] [address] [place] [address] [place] [address] Tank Mills MD [address] [place] [address], [address] [place] [address] 05/13/2025 11:00 AM EST Appointment [facility] [address] 3rd [place] [address] Paul Coburn MD [address] [place] [address], [address] [place] [address] 05/19/2025 11:00 AM EST Nutrition [facility] [address] [place] [address] Ev Ny LDN [address] [place] [address], 1st [place] [address] 05/26/2025 11:00 AM EST Office Visit [facility] [address] [place] [address] 3rd Floor, [address] [place] [address] Paul Coburn MD [address] [place] [address], [address] [address] documented as of this encounter Results * NC Stress Result for Nuclear Stress Test (06/21/2022 11:36 AM EDT) Max BP Systolic 182 mmHg [facility] Max BP Diastolic 82 mmHg [facility] Max HR 157 BPM [facility] Resting HR 104 BPM [facility] Resting BP Systolic 114 mmHg [facility] Resting BP Diastolic 74 mmHg [facility] Peak METS 7.0 METS [facility] Peak HR 157 BPM [facility] Peak BP Systolic 160 mmHg [facility] Peak BP Diastolic 80 mmHg [facility] Anatomical Region Laterality Modality Heart Other 06/21/2022 10:2 7 AM EDT 06/21/2022 11:36 AM EDT Narrative 06/21/2022 11:37 AM EDT Response to Stress The patient exercised for minutes seconds, achieving 7.0 METS at peak exercise. Baseline blood pressure was 114/74 mmHg, and baseline heart rate was 104 bpm. Peak blood pressure was 160/80 mmHg. The patient achieved a peak heart rate of 157 bpm, which is% of their maximum predicted heart rate. Rate pressure product [place] [address]. REPORT - Pt exercised for 5:36 min on a JAZ protocol achieving 7 METS. Test terminated due to fatigue. Baseline resting HR was 83. Max heart rate achieved was 157 (109% MPHR). 1. EKG - Baseline EKG showed normal sinus rhythm, nonspecific ST T wave abn. During exercise, there were up to [address] depressions in the inferolateral leads. 2. SYMPTOMS - no chest pain 3. EXERCISE PHYSIOLOGY - normal BP response to exercise. Average functional capacity for age. 4. ARRHYTHMIAS - frequent PVCs throughout Conclusion - abnormal stress test with EKG changes which are suggestive of ischemia. Pt also had a lot of PVCs, advised to resume metoprolol. No chest pain reported. Nuclear images pending and will be reported separately. Itz Thurston IP ARCHITECT with Dr. Grant . us Yariel Bethea MD CV NM CARDIAC Final Resu lt documented in this encounter Visit Diagnoses Diagnosis Precordial pain Precordial pain documented in this encounter Additional Health Concerns Infection Onset Date Last Indicated Resolved Time CoV-Risk 06/17/2022 06/17/2022 06/28/2022 1:22 AM EDT CoV-Risk 02/09/2024 02/09/2024 02/20/2024 1:22 AM EST Assessment Noted Time PHQ-2 Depression Total Score: 0 03/26/20 20 1:42 PM EST documented as of this encounter Care Teams Patient Carrier Relationship Specialty Start Date End Date Tank Mills MD [address] [place] [address], [address] [place] [address] [email or web address] PCP - General 01/10/17 documented as of this encounter Additional Source Comments The information contained in this document represents components of the legal health record. It is not the complete legal health record.[facility]
--- OUTSIDE RECORDS SUMMARY | 2025-01-23 12:07 | XMS_ITS | Encounter Summary ---
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 on file Not on file documented as of this encounter Plan of Treatment Upcoming Encounters Date Type Department Care Team (Late st Contact Info) Description 01/27/2025 2:15 PM EST Office Visit [facility] [address] [place] [address] [place] [address] Tank Mills MD [address] [place] [address], [address] [place] [address] 05/13/2025 11:00 AM EST Appointment [facility] [address] 3rd [place] [address] Paul Coburn MD [address] [place] [address], [address] [place] [address] 05/19/2025 11:00 AM EST Nutrition [facility] [address] [place] [address] Ev Ny LDN [address] [place] [address], 1st [place] [address] 05/26/2025 11:00 AM EST Office Visit [facility] [address] [place] [address] 3rd Floor, [address] [place] [address] Paul Coburn MD [address] [place] [address], [address] [address] documented as of this encounter Visit Diagnoses Not on filedocumented in this encounter Additional Health Concerns Infection Onset Date Last Indicated Resolved Time CoV-Risk 02/09/2024 02/09/2024 02/20/2024 1:22 AM EST Assessment Noted Time PHQ-2 Depression Total Score: 0 03/26/20 20 1:42 PM EST documented as of this encounter Care Teams Regional Office Coordinator Relationship Specialty Start Date End Date Tank Mills MD [address] [place] [address], [address] [place] [address] (work) [email or web address] PCP - General 01/10/17 documented as of this encounter Additional Source Comments The information contained in this document represents components of the legal health record. It is not the complete legal health record.[facility]
--- OUTSIDE RECORDS SUMMARY | 2025-01-23 12:07 | XMS_ITS | Encounter Summary ---
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 file Not on file documented as of this encounter Plan of Treatment Upcoming Encounters Date Type Department Care Team (Late st Contact Info) Description 01/27/2025 2:15 PM EST Office Visit [facility] [address] [place] [address] [place] [address] Tank Mills MD [address] [facility], [address] [place] [address] 05/13/2025 11:00 AM EST Appointment [facility] [address] [place] [address] Paul Coburn MD [address] [facility], [address] [place] [address] 05/19/2025 11:00 AM EST Nutrition [facility] [address] [place] [address] vE Ny LDN [address] [facility], 1st [place] [address] 05/26/2025 11:00 AM EST Office Visit [facility] [address] [facility] 3rd Floor, [address] [place] [address] Paul Coburn MD [address] [place] [address], [address] [address] documented as of this encounter Visit Diagnoses [...] documented as of this encounter Care Teams Teacher Preschool Relationship Specialty Start Date End Date Tank Mills MD [address] [place] [address], [address] [place] [address] PCP - General 01/10/17 documented as of this encounter Additional Source Comments The information contained in this document represents components of the legal health record. It is not the complete legal health record.[facility]
--- OUTSIDE RECORDS SUMMARY | 2025-01-23 12:07 | XMS_ITS | Encounter Summary ---
Author Organization [facility] Address [address] [facility] [address] [place] [address] Phone Care Team Providers Care Machinist 2Nd Shift Name Role Phone Tank Mills MD Primary Care Provider [phone] Reason for Referral * MRI/CAT Scan - Closed Specialty Diagnoses / Procedures Referred By Woody amaral Referred To Contact Radiology Diagnoses Other forms of angina pectoris Procedures NC Myocardial Perfusion Exercise Multiple NC Myocardial Perfusion Pharmacologic Stress Multiple Paul Coburn MD Phone: tel: fax: [email or web address] Referral ID Status Reason Start Date Expiration Date Visits Re quested Visits Authorized [id number] Closed 08/14/2023 08/13/2024 1 1 Encounter Details Date Type Department Care Team (Latest Contact Info) Description 08/30/2023 Ancillary Orders [facility] [address] [place] [address] 3rd Floor, [address] [place] [address] Paul Coburn MD [address] [facility], [address] [place] [address] 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 on file Not on file documented as of this encounter Plan of Treatment Upcoming Encounters Date Type Department Care Team (Late st Contact Info) Description 01/27/2025 2:15 PM EST Office Visit [facility] [address] [place] [address] [place] [address] Tank Mills MD [address] [place] [address], [address] [place] [address] 05/13/2025 11:00 AM EST Appointment [facility] [address] [place] [address] Paul Coburn MD [address] [place] [address], [address] [place] [address] 05/19/2025 11:00 AM EST Nutrition [facility] [address] [place] [address] [place] [address] Ev Ny LDN [address] [place] [address], 1st [place] [address] 05/26/2025 11:00 AM EST Office Visit [facility] [address] [place] [address] 3rd Floor, [address] [place] [address] Paul Coburn MD [address] [facility], [address] [place] [address] [email or web address] documented as of this encounter Results * NC Myocardial Perfusion Exercise Multiple (08/30/2023 1:22 PM EDT) [facility] Max Predicted Heart Rate 143 bpm Stress/rest perfusion ratio 0.96 Nuc Stress EF 53 % SNMDIAVOL 88.0 mL SNMSYSVOL 41.0 mL Nuc Rest EF 59 % RNMDIAVOL 80.0 mL RNMSYSVOL 33.0 mL Anatomical Region Laterality Modality Heart, Vascular Ultrasound Narrative 08/30/2023 4:24 PM EDT Myocardial perfusion stress test report-abnormal 1 day rest stress protocol in supine and prone position images were obtained. Myocardial perfusion defects were seen in the following segments and severity Yared cardial perfusion defects were seen in inferior wall. These defects were reversible during resting images LV function normal with ejection fraction of 59% TID. 0.96 Conclusion: Ischemia seen in inferior wall Infarction not seen. LV function normal with ejection fraction 59% Recommendation ; Abnormal myocardial perfusion stress test. Clinical correlation suggested. Stress Findings NUCLEAR REPORT: TYPE OF STUDY: Myocardial Perfusion Imaging after exercise utilizing a standard Jonah protocol with gated SPECT. PROTOCOL USED: One day rest- stress protocol in the supine and prone position. Images were obtained in gated tomographic technique. Images were processed in SPECT format, reconstructed tomographically and compared [id number] in short axis, horizontal long axis and vertical long axis. DOSE: Technetium 99m Sestamibi 7.5 mCi injected intravenously in the right antecubital vein at rest on 08/30/2023 with post injection scan time of 60 minutes. Technetium 99m Sestamibi 22.0 mCi injected intravenously in the right arm antecubital vein during stress on 08/30/2023 with post injection scan time of 20 minutes. Overall image quality is good. Diaphragmatic attenuation is present. No motion artifact is present. ECG STRESS REPORT: BMI: 26.82 Cory Turpin exercised for 3:52 minutes on a OJNAH protocol achieving 4.6 METS. Test terminated due to chest discomfort. Baseline resting heart rate was 85 bpm. Maximum heart rate achieved was 130 bpm (90% MPHR). 1. EKG - Baseline EKG showed sinus rhythm with non-specific ST/T wave abnormalities. During exercise, there were no EKG changes meeting criteria for ischemia. 2. SYMPTOMS - At peak exercise, patient reported 7/10 diffuse chest discomfort and tightness. Symptoms resolved at rest in the recovery period. 3. EXERCISE PHYSIOLOGY - Fair functional capacity for age. BP 142/86 at rest, 154/84 during exercise, and 140/80 upon discharge from stress lab. 4. ARRHYTHMIAS - Few isolated PVCs. Conclusion - No EKG changes meeting criteria for ischemia. Patient did report symptoms concerning for angina. Nuclear images pending and will be reported separately. See attached stress report for full details. EFRA Hopper Stress Function Defect Left ventricular global function is normal during stress. Stress ejection fraction is 53%. The stress end diastolic cavity size is normal. The stress end systolic cavity size is normal. Rest Function Defect Left ventricular global function is normal at rest. Resting ejection fraction was 59%. The rest end diastolic cavity size is normal. Rest end diastolic size: 80.0 ml. The rest end systolic cavity size is normal. Rest end systolic size: 33.0 mL. Nuclear Prior Study There is a prior study available for comparison that was performed on 06/21/2022. Nuclear Ancillary Finding There is no evidence of transient ischemic dilation (TID). The TID ratio is 0.96, which is normal. Perfusion Scoring Resting Summed Score: 0 Percent Normal: 0.00% The left ventricular perfusion is normal. SUPINE IMAGING REST Perfusion Scoring Stress Summed Score: 2 Percent Normal: 2.94% Moderate count reduction in the following segments: mid inferior. All other segments are normal. PRONE IMAGING STRESS Perfusion Scores: SRS Score: 0 Percentage Abnormal: 0.00% Perfusion Scores: SSS Score: 2 Percentage Abnormal: 2.94% Perfusion Scores: SDS Score: 2 Percentage Abnormal: 2.94% Procedure Note Emmett Meza MD - 08/30/2023 Myocardial perfusion stress test report-abnormal 1 day rest stress protocol in supine and prone position images wereobtained. Myocardial perfusion defects were seen in the following segments andseverity Yared cardial perfusion defects were seen in inferior wall. These defectswere reversible during resting images LV function normal with ejection fraction of 59% TID. 0.96 Conclusion: Ischemia seen in inferior wall Infarction not seen. LV function normal with ejection fraction 59% Recommendation ; Abnormal myocardial perfusion stress test. Clinical correlation suggested. us Paul Coburn MD CV NM CARDIAC Final Resul t documented in this encounter Visit Diagnoses Diagnosis Other forms of angina pectoris- Primary Coronary artery disease- Primary Coronary atherosclerosis of unspecified type of vessel, hughes or graft Essential hypertension Unspecified essential hypertension Abdominal aortic aneurysm (AAA) 3.0 cm to 5.5 cm in diameter in male Other forms of angina pectoris Mixed hyperlipidemia documented in this encounter Additional Health Concerns Infection Onset Date Last Indicated Resolved Time CoV-Risk 02/09/2024 02/09/2024 02/20/2024 1:22 AM EST Assessment Noted Time PHQ-2 Depression Total Score: 0 03/26/20 20 1:42 PM EST documented as of this encounter Care Teams Machinist 2Nd Shift Relationship Specialty Start Date End Date Tank Mills MD [address] [place] [address], [address] [place] [address] [email or web address] PCP - General 01/10/17 documented as of this encounter Additional Source Comments The information contained in this document represents components of the legal health record. It is not the complete legal health record.[facility]
--- OUTSIDE RECORDS SUMMARY | 2025-01-23 12:07 | XMS_ITS | Encounter Summary ---
Author Organization [facility] Address [address] [facility] [address] [place] [address] Phone Care Team Providers Care Visiting Nurse Name Role Phone Tank Mills MD Primary Care Provider [phone] Reason for Visit * Reason Onset Date Comments Anemia 01/22/2025 Encounter Details Date Type Department Care Team (Late st Contact Info) Description 01/22/2025 Telephone [facility] Medicine [address] [place], [place] [id number] Tank Mills MD [address] [facility], [address] [place] [address] [email or web address] Anemia Social History Tobacco Use Types Packs/Day Years [...] 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 I signed refills * Dasha Hodge RN - 01/22/2025 2:39 PM EDT Spoke with patient. He states Dr. Davis wants to know about his anemia and is looking for his lab results. Patient has never had blood work ordered by Dr. Davis. Patient asks to send latest lab resultsfrom [facility] to Dr. Davis. I am feeling good and I am taking my iron pills and vit C. He would like to know if he is to continue taking the ferrous gluconate. If he is, he needs a refill. 11/26/24 [facility] CBC with diff results faxed to Dr. Davis. Fax to [facility] failed. Noted wrong fax number [facility]: [phone]. * Dasha Hodge RN - 01/22/2025 1:47 PM EDT Spoke with Tarah at [facility] Pulmonology. Medical practices can no longer send medical records and need to contact medical records at [phone]. She transferred the call to medical records. Wason hold for 18 minutes with medical records. Communication letter sent to [facility] HIM and cc to Dr. Davis requesting last OV notes and lab results. Tank Mills MD to [facility] Rn PE 01/22/25 12:40 PM Please clarify request with the patient. I do not have all the information, please see if we can get recent notes from the linker up and recent lab work. His last available to me in early November shows stable mild anemia not warranting neurology or hematology workup. The telephone message mentions a neurologist evaluation for anemia, which does not make sense * Rupali Uribe - 01/22/2025 10:25 AM EDT Pt called and would like to know why he has to go to Neurology for his anemia, he states he spoke with PCP about it and his understanding was his anemia was under control, but Dr. Davis (linker up) wants him to go, he would like PCP input, please contact [phone] documented in this encounter Plan of Treatment Upcoming Encounters Date Type Department Care Team (Late st Contact Info) Description 01/27/2025 2:15 PM EST Office Visit [facility] [address] [place] [address] [place] [address] Tank Mills MD [address] [place] [address], [address] [place] [address] 05/13/2025 11:00 AM EST Appointment [facility] [address] [place] [address] Paul Coburn MD [address] [place] [address], [address] [place] [address] 05/19/2025 11:00 AM EST Nutrition [facility] [address] [place] [address] [place] [address] Ev Ny LDN [address] [place] [address], 1st [place] [address] 05/26/2025 11:00 AM EST Office Visit [facility] [address] [place] [address] [address]rd Floor, [address] [place] [address] Paul Coburn MD [address] [facility], [address] [place] [address] [email or web address] documented as of this encounter Visit Diagnoses Diagnosis Blood loss anemia Acute posthemorrhagic anemia documented in this encounter Additional Health Concerns Assessment Noted Time PHQ-2 Depression Total Score: 0 11/30/19 25 10:14 AM EDT documented as of this encounter Care Teams Visiting Nurse Relationship Specialty Start Date End Date Tank Mills MD [address] [place] [address], [address] [place] [address] [email or web address] PCP - General 01/10/17 documented as of this encounter Additional Source Comments The information contained in this document represents components of the legal health record. It is not the complete legal health record.[facility]
--- OUTSIDE RECORDS SUMMARY | 2025-01-23 12:07 | XMS_ITS | Encounter Summary ---
Author Organization [facility] Address [address] [place] [address] Phone Care Team Providers Care Ethylene Plant Helper Name Role Phone Tank Mills MD Primary Care Provider [phone] Encounter Details Date Type Department Care Team (Latest Contact Info) Description 07/31/2017 Transcribe Orders [facility] Specimen Processing [address] [place] [address] Jhony Gandara MD [address] [place] [address], [address] [place] [address] [email or web address] Diarrhea of presumed infectious origin (Primary Dx) Social History Tobacco Use Types Packs/Day Years Used Date Smoking Tobacco: Former Cigarettes Q uit: 02/27/2001 Smokeless Tobacco: Never Sex and Gender Information Value Date Recorded Sex Assigned at Not on file Legal Sex Male 4:34 PM EST Gender Identity Not on file Sexual Orientation Not on file 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 Not on file Not on file documented as of this encounter Plan of Treatment Upcoming Encounters Date Type Department Care Team (Late st Contact Info) Description 01/27/2025 2:15 PM EST Office Visit [facility] [place] [facility] [address] [place] [address] [place] [id number] Tank Mills MD [address] [place] [address], [address] [place], [place] [id number] 05/13/2025 11:00 AM EST Appointment [facility] [place] [address]rd [place] [address] Paul Coburn MD [address] [facility], [address] [place] [address] [email or web address] 05/19/2025 11:00 AM EST Nutrition [facility] [address] [place] [address] Ev Ny, SAMANTHA [address] [facility], 1st [place] [address] [email or web address] 05/26/2025 11:00 AM EST Office Visit [facility] [address], [address] [place] [address] Paul Coburn MD [address] [facility], [address] [place] [address] documented as of this encounter Results * Ova and parasites, stool (07/30/2017 12:30 PM EDT) Specimen Source/ Description STOOL FORMALIN STOOL STOOL [facility] Special Requests None [facility] DIRECT EXAM No parasites found by Trichrome Stain [facility] DIRECT EXAM NO PARASITES FOUND BY DIRECT OR CONCENTRATION METHODS [facility] Report Status 08/09/2017 FINAL [facility] Stool (Stool) 07/30/2017 12: 30 PM EDT 07/31/2017 2:26 PM EDT us Jhony Gandara MD MICROBIOLOGY - GENERAL ORDERAB LES Final Result [facility] [address] [place] [address] * Ova and parasites, stool (07/29/2017 6:20 AM EDT) Specimen Source/ Description STOOL FORMALIN STOOL STOOL [facility] Special Requests None [facility] DIRECT EXAM No parasites found by Trichrome Stain [facility] DIRECT EXAM NO PARASITES FOUND BY DIRECT OR CONCENTRATION METHODS [facility] Report Status 08/09/2017 FINAL [facility] Stool (Stool) 07/29/2017 6:2 0 AM EDT 07/31/2017 2:26 PM EDT us Jhony Gandara MD MICROBIOLOGY - GENERAL ORDERAB LES Final Result Performing Organization Address City/State/[facility] Co de Phone Number [facility] [address] [place] [address] documented in this encounter Visit Diagnoses Diagnosis Diarrhea of presumed infectious origin- Primary documented in this encounter Additional Health Concerns Infection Onset Date Last Indicated Resolved Time CoV-Risk 04/23/2020 04/23/2020 05/03/2020 1:24 AM EST CoV-Risk 04/25/2022 04/25/2022 05/06/2022 1:22 AM EST CoV-Risk 06/02/2022 06/02/2022 06/13/2022 1:22 AM EDT CoV-Risk 06/17/2022 06/17/2022 06/28/2022 1:22 AM EDT CoV-Risk 02/09/2024 02/09/2024 02/20/2024 1:22 AM EST documented as of this encounter Care Teams Ethylene Plant Helper Relationship Specialty Start Date End Date Tank Mills MD [address] [place] [address], [address] [place] [address] [email or web address] PCP - General 01/10/17 documented as of this encounter Additional Source Comments The information contained in this document represents components of the legal health record. It is not the complete legal health record.[facility]
--- OUTSIDE RECORDS SUMMARY | 2025-01-23 12:07 | XMS_ITS | Encounter Summary ---
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 Not on file Not on file documented as of this encounter Plan of Treatment Upcoming Encounters Date Type Department Care Team (Late st Contact Info) Description 01/27/2025 2:15 PM EST Office Visit [place] [address] [place] [address] Tank Mills MD [address] [place] [address], [address] [place] [address] 05/13/2025 11:00 AM EST Appointment [facility] [address] 3rd [place] [address] Paul Coburn MD [address] [place] [address], [address] [place] [address] 05/19/2025 11:00 AM EST Nutrition [facility] [address] [place] [address] [place] [address] Ev Ny, SAMANTHA [address] [place] [address], 1st [place] [address] 05/26/2025 11:00 AM EST Office Visit [facility] [address] [place] [address] [address] [facility], [address] [place] [address] Paul Coburn MD [address] [place] [address], [address] [address] documented as of this encounter Visit Diagnoses Not on filedocumented in this encounter Additional Health Concerns Infection Onset Date Last Indicated Resolved Time CoV-Risk 02/09/2024 02/09/2024 02/20/2024 1:22 AM EST Assessment Noted Time PHQ-2 Depression Total Score: 0 03/26/20 20 1:42 PM EST documented as of this encounter Care Teams Laser/Electro Optics Technician Relationship Specialty Start Date End Date Tank Mills MD [address] [place] [address], [address] [place] [address] PCP - General 01/10/17 documented as of this encounter Additional Source Comments The information contained in this document represents components of the legal health record. It is not the complete legal health record.[facility]
--- OUTSIDE RECORDS SUMMARY | 2025-01-23 12:08 | XMS_ITS | Encounter Summary ---
Author Organization [facility] Address [address] [place] [address] Phone Care Team Providers Care Drying Can Worker Name Role Phone Tank Mills MD Primary Care Provider [phone] Reason for Visit * Reason Onset Date Comments Appointment 11/18/2024 Encounter Details Date Type Department Care Team ([facility] st Contact Info) Description 11/18/2024 Telephone [facility] [address] [place] [address] Kimberley [email or web address] Appointment Social History Tobacco Use Types Packs/Day Years [...] 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 Agent Action: > Reason for Call: NO SHOW > Comment: Enter Cancel Appt date > Route: Route to FD if the No-Show is a future date. > Route: OXBOW SDV and Sick Visit No-Show, route to RN for rescheduling. Do not Call Center: Ensure the appt has been cancel from the future tab > Reiterate Scripting: Provide our late cancellation policy to the caller Required Scripting for Existing Patients: Thank you for notifying us about the cancellation. We will inform the provider. As a reminder, our policy requires at least 24 hours' notice for cancellations, as providers reserve time for your appointment, and short notice often makes it difficult to reschedule. You can cancel appointments anytime through your [facility]. We appreciate your understanding. Required Scripting for New Patients: Thank you for notifying us about the cancellation. We will inform the provider. Please be aware of our 48-hour cancellation policy for new patients. If you need to cancel or reschedule, we ask for at least 48 hours' notice. If you miss an appointment or cancel without sufficient notice, it will be marked as a No-Show appointment. We allow for two unforeseen circumstances under this policy. This policy ensures that our providers can manage their schedules effectively. Additionally, you can cancel appointments anytime through your [facility] [place]. documented in this encounter Plan of Treatment Upcoming Encounters Date Type Department Care Team (Late st Contact Info) Description 01/27/2025 2:15 PM EST Office Visit [address] [place] [address] Tank Mills MD [address] [place] [address], [address] [place] [address] 05/13/2025 11:00 AM EST Appointment [facility] [address] 3rd [place] [address] Paul Coburn MD [address] [facility], [address] [place] [address] 05/19/2025 11:00 AM EST Nutrition [facility] [address] [place] [address] Ev Ny LDN [address] [facility], 1st [place] [address] 05/26/2025 11:00 AM EST Office Visit [facility] [address] [place] [address] [address] [facility], [address] [place] [address] Paul Coburn MD [address] [place] [address], [address] [address] documented as of this encounter Visit Diagnoses Not on filedocumented in this encounter Additional Health Concerns Assessment Noted Time PHQ-2 Depression Total Score: 0 03/26/20 20 1:42 PM EST documented as of this encounter Care Teams Drying Can Worker Relationship Specialty Start Date End Date Tank Mills MD [address] [place] [address], [address] [place] [address] PCP - General 01/10/17 documented as of this encounter Additional Source Comments The information contained in this document represents components of the legal health record. It is not the complete legal health record.[facility]
--- OUTSIDE RECORDS SUMMARY | 2025-01-23 12:08 | XMS_ITS | Patient Health Record ---
[facility] [place] Address [address] [place] [address] Care Team Providers [facility] Name Role Phone [place] Primary Care Provider UnavailOtoniel Villasenor Unavailable [phone] Oliva Cabrera Unavailable [phone] Karen Stern Unavailable [phone] Allergies No Known Allergies Results Component Value Reference Range Notes HEMOGLOBIN A1C (GLYCOHEMOGLO BIN) Reviewed date:08/09/2024 01:35:04 PM Interpretation: Performing Lab: Notes/Report: HEMOGLOBIN A1C % (HH) 5.7 HEMOGLOBIN A1C (GLYCOHEMOGLO BIN) Reviewed date:10/31/2024 01:03:18 PM Interpretation: Performing Lab: Notes/Report: HEMOGLOBIN A1C % (HH) 5.2 Reason For Referral No Information Medications Medication SIG (Take, Route, Frequency, Duration) Notes Start Date End Date Status Famotidine 40 MG Oral; Duration: 90 Days Active Iron Active LORazepam 0.5 MG Oral; Duration: 20 Days Active Aspirin Low Dose 81 MG TAKE ONE TABLET B Y MOUTH EVERY DAY Oral; Duration: 90 Days Active Bevespi Aerosphere 9-4.8 MCG/ACT INHALE TWO PUFFS BY MOUTH TWICE A DAY IN THE MORNING & IN THE EVENING Inhalation; Duration: 30 Days Active Rosuvastatin Calcium 10 MG Oral; Duration: 90 Days Active Pregabalin 200 MG TAKE ONE CAPSULE BY MOUTH THREE TIMES A DAY Oral; Duration: 90 Days Active Ammonium Lactate 12 % 1 application Exte rnally to affected areas of dry skin to feet except for between the toes Twice a day; Duration: 30 days Active Albuterol Sulfate HFA 108 (90 Base) MCG/ACT Inhalation; Duration: 25 Days Active glipiZIDE ER 5 MG Oral; Duration: 90 Days Active Furosemide 20 MG Oral; Duration: 60 Days Active Azithromycin 250 MG TAKE 2 TABLETS ON FI RST DAY , THEN 1 TABLET DAILY FOR 4 DAYS Oral; Duration: 5 Days Active Famotidine 20 MG Oral; Duration: 10 Days Active metFORMIN HCl ER 500 MG TAKE ONE TABLET BY MOUTH EVERY DAY WITH DINNER Oral; Duration: 30 Days Active Vitamin C Active Lasix Active Clopidogrel Bisulfate 75 MG Oral; Duration: 87 Days Acti ve Albuterol Sulfate (2.5 MG/3ML) 0.083% Inhalation; Duration: 30 Days Active Ferretts 325 (106 Fe) MG TAKE ONE TABLET BY MOUTH EVERY DAY Oral; Duration: 30 Days Active Mirtazapine 7.5 MG Oral; Duration: 30 Days Active OneTouch Delica Plus [id number] - USE 1 LANCET DAILY DIRECTED; Duration: 90 Days Active Dicyclomine HCl 10 MG Oral; Duration: 15 Days Active Fluticasone Propionate 50 MCG/ACT INSTILL 1 SPRAY INTO EACH NOSTRIL TWO TIMES DAILY; SHAKE WELL BEFORE USE Nasal; Duration: 30 Days Active Bevespi Aerosphere 9-4.8 MCG/ACT Inhalation; Duration: 30 Days Active Famotidine 40 MG TAKE ONE TABLET BY M OUTH DAILY AT BEDTIME Oral; Duration: 90 Days Active Vitamin C 500 MG TAKE ONE TABLET BY M OUTH EVERY DAY Oral; Duration: 90 Days Active Brilinta 90 MG TAKE 1 TABLET BY CONG TH TWO TIMES A DAY Oral; Duration: 30 Days Active Extra Depth Orthopedic Shoes (1 Pair) with Customized Heat Molded Multidensity Innersoles (3 Pair) as directed Dx: NIDDM/Polyneuropathy (E11.42), Hammertoe Foot Deformity (M20.41,M20.42), Preulcerative Skin Lesion(s) (L85.1 08/09/[address]24 Active [address] ONE TABLET UND ER THE TONGUE NIGHTLY AT BEDTIME Sublingual; Duration: 90 Days Active Aspirin Low Dose 81 MG TAKE ONE TABLET B Y MOUTH EVERY DAY Oral; Duration: 90 Days Active Ferrous Gluconate 324 (38 Fe) MG TAKE 1 TABLET BY MOUTH THREE TIMES A WEEK ON MONDAY, MONDAY, AND MONDAY Oral; Duration: 70 Days Active Metoprolol Tartrate 25 MG Oral; Duration: 90 Days Active Rosuvastatin Calcium 10 MG Oral; Duration: 90 Days Active predniSONE 20 MG Oral; Duration: 5 Days Active Fluticasone-Salmeterol 113-14 MCG/ACT Inhalation; Duration: 30 Days Active Omeprazole 40 MG TAKE ONE CAPSULE BY MOUTH EVERY DAY Oral; Duration: 90 Days Active HYDROcodone-Acetaminophen 5-325 MG Oral; Duration: 2 Days Activ e LORazepam 0.5 MG Oral; Duration: 20 Days Active Immunizations Vaccine Route Administration Date Status Comme nts Influenza Unknown 12/26/2023 Administered Influenza Unknown 01/10/2025 Administered COVID-19 Moderna Vaccine Unknown 12/26/2024 Administere d Social History Tobacco Use: Social History Observation [...] Problem Acquired hammer toe of right foot (7819777203436317 ) Other hammer toe(s) (acquired), right foot (M20.41) Active confirmed Problem Acquired hammer toe of left foot (0988641956726324 ) Other hammer toe(s) (acquired), left foot (M20.42) Active confirmed Problem Polyneuropathy due to type 2 diabetes mellitus (347656518) Type 2 diabetes mellitus with diabetic polyneuropathy (E11.42) Active confirmed Vital Signs Blood pressure diastolic 65 mm Hg 01/10/2025 Height 5 ft in 01/10/2025 Blood pressure systolic 128 mm Hg 01/10/2025 Weight 190 lbs 01/10/2025 BMI 37.1 kg/m2 01/10/2025 Procedures Procedure Date Ordered Date Performed Result Body Sit e 75336-NUPHBFK NAIL, 1-5 08/09/2024 N/A 33652-ZNWW SKIN LESIONS, OVER 4 08/09/2024 N/A L9979-GAACLXIK DYSTROPHIC NAILS ANY # 08/09/2024 N/A 90758-QHDASIV NAIL, 1-5 01/10/2025 N/A 15848-SWDM SKIN LESIONS, OVER 4 01/10/2025 N/A G7305-DVORGMVT DYSTROPHIC NAILS ANY # 01/10/2025 N/A Encounters Encounter Location Date Provider Diagnosis [address] [address] 08/09/2024 Otoniel Zurita Type 2 diabetes mellitus with diabetic polyneuropathy E11.42 ; Tinea unguium B35.1 ; Other hammer toe(s) (acquired), right foot M20.41 and Other hammer toe(s) (acquired), left foot M20.[address] [address] 10/31/2024 Karen Jarred Type 2 diabetes mellitus with diabetic polyneuropathy E11.42 and Tinea unguium B35.[address] [address] 01/10/2025 Otoniel Zurita Type 2 diabetes mellitus with diabetic polyneuropathy E11.42 ; Tinea unguium B35.1 and Xerosis of skin L85.[address] [address] 10/29/2024 Otoniel Zurita [address] [address] 10/30/2024 Otonielvalarie Zurita [address] [address] 12/31/2024 Otoniel Zurita Assessments Encounter Date Diagnosis (ICD Code) Assessment Notes Treatment Notes Treatment Clinical Notes Section Notes 08/09/2024 Tinea unguium (ICD-10 - B35.1) 08/09/2024 Type 2 diabetes mellitus with diabetic polyneuropathy (ICD-10 - E11.42) 10/31/2024 Type 2 diabetes mellitus with diabetic polyneuropathy (ICD-10 - E11.42) 01/10/2025 Type 2 diabetes mellitus with diabetic polyneuropathy (ICD-10 - E11.42) 01/10/2025 Tinea unguium (ICD-10 - B35.1) 10/31/2024 Tinea unguium (ICD-10 - B35.1) 08/09/2024 Other hammer toe(s) (acquired), right foot (ICD-10 - M20.41) Patient Educated with: DIABETIC FOOT CARE INSTRUCTIONS. pdf (DIABETIC FOOT CARE INSTRUCTIONS. pdf) 08/09/2024 Other hammer toe(s) (acquired), left foot (ICD-10 - M20.42) 01/10/2025 Xerosis of skin (ICD-10 - L85.3) Plan Of Treatment Pending Test Test Name Order Date [id number]-ZQKWWRL NAIL, 1-08/09/2024 19914-EJOHKDN NAIL, 1-5 01/10/2025 54825-WIWE SKIN LESIONS, OVER 4 08/10/19 65270-EUAZ SKIN LESIONS, OVER 4 01/11/20 M2679-HXTFNALJ DYSTROPHIC NAILS ANY # I9572-IEWPGXQL DYSTROPHIC NAILS ANY # Next Appt Details Provider Name:Otoniel Zurita , 05/06/2025 03:15:00 PM, [address] [place], [address], Insurance Providers Payer Name Payer Address Payer Phone Subscriber Number Group Number Insured Name Patient Relationship to Insured Coverage Start Date Coverage End Date [address] [id number] [phone] [id number] Cory Vazquez Self - patient is the insured 4 Medical (General) History Medical History History ICD Code Back,Hip,and Knee pain CAD (Cholesterol) Diabetic Heart disease High Blood Pressure Lung disease Surgical History Surgery Date(Month/Year) lung surgery Hospitalization History Reason Date(Month/Year) [facility]- iron issues 07/19
== END 2025-01-23 10:42 | disposition home or self-care (01) ==
LOC: HO.HUSH 10:05
PROVIDERS: PCP Internal Medicine; Visit Provider Urology
DX: R15.9 Full incontinence of feces (principal)
CPT/HCPCS: 99024

== ENCOUNTER → 2025-01-23 10:05 | Outpatient (BNVA) | payer MEDICARE, MEDICAID, SELFPAY | PROVIDERS: PCP Internal Medicine; Visit Provider Urology | DX: R15.9 Full incontinence of feces (principal); Z98.890 Other specified postprocedural states | CPT/HCPCS: 99212 ==